=== PATIENT | male | born 1955 | race Caucasian/White ===

== ENCOUNTER 2022-03-23 08:03 | Inpatient (IN) ==
[2022-03-23 09:14] LABS: Albumin Globulin Ratio 1.2 (0.9-2); Albumin Level 4.1 gm/dl (3.4-5.0); BUN Creatinine Ratio 10.4 (10-20); Bilirubin,Total 0.7 mg/dl (0.2-1.0); Calcium 9.1 mg/dl (8.5-10.1); Creatinine Clr Calc Pharmacy 36.1 ml/min; Est GFR (African American) 34.5 ml/min; Est GFR (Non-African American) 29.8 ml/min; Globulin 3.4 gm/dl (2.5-4.0); Magnesium 1.9 mg/dl (1.7-2.4); Potassium 4.5 mmol/L (3.5-5.1); Total Protein 7.5 gm/dl (6.0-8.3)
--- NOTE | 2022-03-23 09:15 | Emergency Department Note ---
History of Present Illness General Chief complaint: Referred by Doctor Stated complaint: LUNG ISSUES Time Seen by Provider: 03/23/22 08:19 Source: patient Mode of arrival: ambulatory Limitations: no limitations History of Present Illness Provider complaint: Shortness of breath, recent pneumonia This is a 66-year-old male presents Emergency Department after being referred by his PCP whom he saw this morning. Patient with recent diagnosis of pneumonia on outpatient chest x-ray after having approximately 10 days of fever, and cough. Patient states they did start him on antibiotics but he does not feel these are helping and he has not improved. He states he had outpatient blood work and saw the PCP this morning and they were concerned by his elevated D-dimer and sent him here for additional evaluation. Patient denies any prior history of DVT/PE. He denies any prior cardiac history. Patient states he has had temperatures as high as 102 with accompanying myalgias and arthralgias. Patient states he has been taking the antibiotics as prescribed. Patient is a prior smoker, no formal diagnosis of COPD, no use of home oxygen or other nebulizer. Home Medications Medication Instructions Recorded Confirmed Type amlodipine 10 mg tablet 10 mg PO DAILY 09/12/20 03/23/22 History aspirin 81 mg tablet,delayed 81 mg PO DAILY 09/12/20 03/23/22 History release atorvastatin 10 mg tablet 10 mg PO DAILY 09/12/20 03/23/22 History cilostazol 100 mg tablet 100 mg PO BID 09/12/20 03/23/22 History lisinopril 40 mg tablet 40 mg PO DAILY 09/12/20 03/23/22 History metoprolol tartrate 50 mg tablet 50 mg PO BID 09/12/20 03/23/22 History Allergies Allergy/AdvReac Type Severity Reaction Status Date / Time Penicillins Allergy Unknown UNKNOWN Verified 09/12/20 01:33 REACTION Past Med/Surg History Medical History Anemia due to chronic kidney disease Chronic kidney disease, stage III (moderate) History of tobacco use HLD (hyperlipidemia) HTN (hypertension) PAF (paroxysmal atrial fibrillation) PVD (peripheral vascular disease) Renal artery stenosis Statin intolerance Surgical History H/O cervical spine surgery H/O endarterectomy S/P insertion of iliac artery stent Family History Mother No problems noted. Father Hypertension Brother Diabetes Sister Cancer Bone cancer Brother Cancer lung cancer Sister Cancer Lung cancer Social History Smoking Status: Former smoker Tobacco Type: Cigarettes packs per day: 0.5; Cigarettes Per Day: half pack per day; Smoking End Date: August 2021; Do You Dip or Chew Tobacco: No; Hx Alcohol Use: Yes Alcohol type: beer Hx Substance Use: No Preferred Language: Turkmen Communication Ability: Effective Vegetable Farmworker Required: No Beliefs That Will Affect Care: None Current Living Situation: Spouse Other Information That Helps Us Care for You: No Feels Safe at Home: Yes Safety Concerns: Feels Safe At This Time Assistive Devices: None Review of Systems A total of 10 systems reviewed and were otherwise negative All systems reviewed & are unremarkable except as noted in HPI & below Physical Exam Vital Signs Vital Signs - 24 hr 03/23/22 08:12 03/23/22 08:04 Temperature 36.9 C Temperature Source Temporal Artery Scan Pulse Rate 100 H Pulse Rate [Apical] 84 Respiratory Rate 20 18 Respiratory Effort / Characteristics Non-Labored Spontaneous Non-Labored Spontaneous Respiratory Depth Normal Normal Respiratory Pattern Regular Blood Pressure 145/80 H Blood Pressure [Right Arm] 144/77 H Blood Pressure Mean 101 Blood Pressure Mean [Right Arm] 99 Blood Pressure Position Sitting Blood Pressure Position [Right Arm] Sitting Pulse Oximetry 94 97 Oxygen Delivery Method Room Air Room Air Sepsis Recent Fever Within 48 Hours Yes Sepsis New/Unexplained Change in Mental Status N/A Sepsis Action Taken by Nursing No Action Required GENERAL: alert, well appearing, well nourished, no distress, non-toxic EYE EXAM: normal conjunctiva, PERRL and EOM's grossly intact OROPHARYNX: no exudate, no erythema, lips, buccal mucosa, and tongue normal and mucous membranes are moist NECK: supple, no nuchal rigidity, no adenopathy, non-tender LUNGS: Decreased left posterior lung. Normal chest wall mechanics, no w/r/r HEART: no murmurs, S1 normal and S2 normal ABDOMEN: abdomen soft, non-tender, normo-active bowel sounds, no masses, no rebound or guarding. BACK: Back is symmetrical on inspection and there is no deformity, no midline tenderness, no CVA tenderness. SKIN: no rashes and no bruising UPPER EXTREMITIES: upper extremities are grossly normal. FROM, nml pulses b/l. LOWER EXTREMITIES: No pitting edema. FROM, nml pulses b/l. NEURO EXAM: Normal sensorium, cranial nerves II-XII grossly intact, normal speech, no gross weakness of arms, no gross weakness of legs. Gross sensation intact. Course Administered Medications Amlodipine Besylate (Amlodipine Besylate 5 Mg Tab) 10 mg PO DAILY [facility] Stop: 04/23/22 13:14 Last Admin: 03/24/22 15:50 Dose: 10 mg Documented By: JAYCE Aspirin (Aspirin 81 Mg Ectab) 81 mg PO DAILY [facility] Stop: 04/22/22 13:59 Last Admin: 03/24/22 08:21 Dose: 81 mg Documented By: Marcos Admin: 03/23/22 15:25 Dose: 81 mg Documented By: ALIVIA Atorvastatin Calcium (Atorvastatin 10 Mg Tab) 10 mg PO DAILY [facility] Stop: 04/22/22 14:14 Last Admin: 03/24/22 10:23 Dose: 10 mg Documented By: Marcos Admin: 03/23/22 16:34 Dose: 10 mg Documented By: ALIVIA Heparin Sodium (Porcine) (Heparin Sod 5,000 Unit/0.5 Ml Vial) 5,000 units SQ Q12 [facility] Stop: 04/22/22 20:59 Last Admin: 03/24/22 08:21 Dose: 5,000 units Documented By: Marcos Admin: 03/23/22 21:00 Dose: 5,000 units Documented By: RAVI Piperacillin Sod/Tazobactam (Sod 3.375 gm/ Dextrose) 115 mls @ 28.75 mls/hr IV Q8H [facility]; Protocol Stop: 03/30/22 16:59 Last Infusion: 03/24/22 14:38 Dose: 0 mls/hr Documented By: Admin: 03/24/22 10:35 Dose: 28.8 mls/hr Documented By: Infusion: 03/24/22 05:56 Dose: 0 mls/hr Documented By: Admin: 03/24/22 00:53 Dose: 28.8 mls/hr Documented By: Infusion: 03/23/22 21:09 Dose: 0 mls/hr Documented By: Admin: 03/23/22 17:00 Dose: 28.8 mls/hr Documented By: ALIVIA Vancomycin HCl 1,250 mg/ (Sodium Chloride) 275 mls @ 200 mls/hr IV Q24H [facility]; Protocol Stop: 03/30/22 07:59 Last Infusion: 03/24/22 10:41 Dose: 0 mls/hr Documented By: Admin: 03/24/22 08:31 Dose: 200 mls/hr Documented By: JAYCE Metoprolol Tartrate (Metoprolol Tartrate 50 Mg Tab) 50 mg PO BID [facility] Stop: 04/22/22 20:59 Last Admin: 03/24/22 08:21 Dose: 50 mg Documented By: Admin: 03/23/22 21:00 Dose: 50 mg Documented By: RAVI Zolpidem Tartrate (Zolpidem Tartrate 5 Mg Tab) 5 mg PO HS PRN PRN Reason: Sleep Stop: 04/23/22 00:53 Last Admin: 03/24/22 01:29 Dose: 5 mg Documented By: RAVI Discontinued Medications Cilostazol (Cilostazol 100 Mg Tab) 100 mg PO NOW STA Stop: 03/23/22 12:38 Last Admin: 03/23/22 12:57 Dose: 100 mg Documented By: FADUMO Sodium Chloride (Nss 1000ml) 1,000 mls @ 100 mls/hr IV .Q10H [facility] Stop: 04/22/22 08:29 Last Infusion: 03/24/22 08:21 Dose: 0 mls/hr Documented By: Admin: 03/24/22 05:15 Dose: 100 mls/hr Documented By: Infusion: 03/23/22 23:37 Dose: 200 mls/hr Documented By: Admin: 03/23/22 18:37 Dose: 200 mls/hr Documented By: Infusion: 03/23/22 18:37 Dose: 200 mls/hr Documented By: Admin: 03/23/22 13:59 Dose: 200 mls/hr Documented By: Infusion: 03/23/22 13:59 Dose: 200 mls/hr Documented By: Admin: 03/23/22 10:27 Dose: 200 mls/hr Documented By: KARAN Vancomycin HCl 2,250 mg/ (Sodium Chloride) 545 mls @ 200 mls/hr IV NOW ONE Stop: 03/23/22 15:28 Last Admin: 03/23/22 13:58 Dose: 200 mls/hr Documented By: ALIVIA Piperacillin Sod/Tazobactam (Sod 4.5 gm/ Dextrose) 120 mls @ 200 mls/hr IV NOW ONE; Protocol Stop: 03/23/22 13:20 Last Infusion: 03/23/22 13:55 Dose: 0 mls/hr Documented By: Admin: 03/23/22 12:57 Dose: 200 mls/hr Documented By: FADUMO Metoprolol Tartrate (Metoprolol Tartrate 50 Mg Tab) 50 mg PO NOW STA Stop: 03/23/22 12:17 Last Admin: 03/23/22 12:47 Dose: 50 mg Documented By: FADUMO Medical Decision Making Differential Diagnosis Differential diagnoses includes but is not limited to pneumonia, bronchitis, COPD/Asthma exacerbation, pneumothorax, pulmonary embolism, congestive heart failure, acute coronary syndrome Medical Records Attestation: I reviewed the patient's medical records. Home Medications Current Medication List: was personally reviewed by me Laboratory Data Attestation: I reviewed the patient's lab results. Result diagrams: 03/24/22 05:35 03/24/22 05:35 Lab Results 03/23/22 03/23/22 03/23/22 Range/Units 08:26 08:26 08:26 WBC 4.52 L (4.8-10.8) K/ul RBC 4.97 (4.63-6.08) M/uL Hgb 14.9 (14.0-18.0) g/dl Hct 44.2 (40.1-51.0) % MCV 88.9 (80.0-100.0) fL MCH 30.0 (25.0-34.0) pg MCHC 33.7 (32.0-36.0) g/dL RDW Std Deviation 43.6 (36.4-46.3) fL RDW Coeff of [place] 13.4 (11.5-14.5) % Plt Count 130 (130-400) K/uL MPV 9.5 (9.4-12.4) fL Immature Gran % (Auto) 0.7 % Neut % (Auto) 67.9 % Lymph % (Auto) 15.7 % [place] % (Auto) 11.5 % Eos % (Auto) 3.8 % Baso % (Auto) 0.4 % Neut # (Auto) 3.07 (1.4-6.5) K/uL Lymph # (Auto) 0.71 L (1.2-3.4) K/uL [place] # (Auto) 0.52 (0.24-0.82) K/uL Eos # (Auto) 0.17 (0-0.50) K/uL Baso # (Auto) 0.02 (0-0.2) K/uL Immature Gran # (Auto) 0.03 H (0.00-0.02) K/uL Sodium 134 L (136-145) mmol/L Potassium 4.5 (3.5-5.1) mmol/L Chloride 103 (98-107) mmol/L Carbon Dioxide 24 (21-32) mmol/L Anion Gap 7 (3-11) BUN 23 (6-23) mg/dl Creatinine 2.22 H (0.6-1.4) mg/dl Est Cr Clr Drug Dosing 36.1 ml/min Est GFR ( Amer) 34.5 ml/min Est GFR (Non-Af Amer) 29.8 ml/min BUN/Creatinine Ratio 10.4 (10-20) Glucose 88 (70-99(Fasting)) mg/dl Calcium 9.1 (8.5-10.1) mg/dl Magnesium 1.9 (1.7-2.4) mg/dl Total Bilirubin 0.7 (0.2-1.0) mg/dl AST 63 H (13-39) U/L ALT 89 H (7-52) U/L Alkaline Phosphatase 125 H (34-104) U/L Troponin I High Sens 56.6 H* (0-20) pg/ml Total Protein 7.5 (6.0-8.3) gm/dl Albumin 4.1 (3.4-5.0) gm/dl Globulin 3.4 (2.5-4.0) gm/dl Albumin/Globulin Ratio 1.2 (0.9-2) Procalcitonin (0-0.5) ng/ml SARS-CoV-2 (PCR) NEGATIVE (Negative) Influenza Type A (PCR) Negative (Neg) Influenza Type B (PCR) Negative (Neg) RSV (RT-PCR) Negative (Neg) 03/23/22 Range/Units 08:26 WBC (4.8-10.8) K/ul RBC (4.63-6.08) M/uL Hgb (14.0-18.0) g/dl Hct (40.1-51.0) % MCV (80.0-100.0) fL MCH (25.0-34.0) pg MCHC (32.0-36.0) g/dL RDW Std Deviation (36.4-46.3) fL RDW Coeff of [place] (11.5-14.5) % Plt Count (130-400) K/uL MPV (9.4-12.4) fL Immature Gran % (Auto) % Neut % (Auto) % Lymph % (Auto) % [place] % (Auto) % Eos % (Auto) % Baso % (Auto) % Neut # (Auto) (1.4-6.5) K/uL Lymph # (Auto) (1.2-3.4) K/uL [place] # (Auto) (0.24-0.82) K/uL Eos # (Auto) (0-0.50) K/uL Baso # (Auto) (0-0.2) K/uL Immature Gran # (Auto) (0.00-0.02) K/uL Sodium (136-145) mmol/L Potassium (3.5-5.1) mmol/L Chloride (98-107) mmol/L Carbon Dioxide (21-32) mmol/L Anion Gap (3-11) BUN (6-23) mg/dl Creatinine (0.6-1.4) mg/dl Est Cr Clr Drug Dosing ml/min Est GFR ( Amer) ml/min Est GFR (Non-Af Amer) ml/min BUN/Creatinine Ratio (10-20) Glucose (70-99(Fasting)) mg/dl Calcium (8.5-10.1) mg/dl Magnesium (1.7-2.4) mg/dl Total Bilirubin (0.2-1.0) mg/dl AST (13-39) U/L ALT (7-52) U/L Alkaline Phosphatase (34-104) U/L Troponin I High Sens (0-20) pg/ml Total Protein (6.0-8.3) gm/dl Albumin (3.4-5.0) gm/dl Globulin (2.5-4.0) gm/dl Albumin/Globulin Ratio (0.9-2) Procalcitonin 0.38 (0-0.5) ng/ml SARS-CoV-2 (PCR) (Negative) Influenza Type A (PCR) (Neg) Influenza Type B (PCR) (Neg) RSV (RT-PCR) (Neg) Imaging Data Radiologist's Impression: CT chest diagnostic wo con CLINICAL HISTORY: PE TECHNIQUE: Multidetector row helical CT of the chest was performed. Coronal and sagittal reformations were obtained. Automated dose lowering techniques and/or adjustment according to patient size were utilized for this exam. CT DOSE: 582.43 mGycm Comparison: Comparison is made to chest radiograph 05/04/2006 FINDINGS: Lungs and pleura: Innumerable pulmonary nodules are seen throughout bilateral lungs. Atelectasis is in the right lower lobe. Prominent nodules include the followin mm nodule in the right upper lobe (series 4 image 73) 9 mm nodule in the right lower lobe (image 134) 11 mm nodule in the right middle lobe (image 158) 5 mm nodule in the lingula (image 168) 10 mm nodule in the left lower lobe (image 131) Heart and pericardium: Physiologic pericardial fluid is noted. Vessels: Severe atherosclerotic changes in the aorta and coronary arteries. Evaluation for pulmonary embolus is limited due to noncontrast technique. Mediastinum and samson: Numerous calcified lymph nodes are seen. Chest wall and lower neck: Unremarkable. Abdomen: Unremarkable. Bones: Degenerative changes in the thoracic spine. IMPRESSION: 1. Innumerable pulmonary nodules concerning for metastatic disease versus less likely septic emboli. Correlation with history is recommended. 2. Evaluation for pulmonary embolus is limited by noncontrast technique. 3. Extensive calcified mediastinal lymph nodes may represent prior granulomatous disease versus posttreatment changes of metastatic lymphadenopathy. ACT 112: Negative or not required by law. Electronically signed by: Cristo Kapoor M.D. 03/23/2022 9:56 AM ECG Data Attestation: I personally reviewed and interpreted this ECG as follows: Indication: + SOB/dyspnea Rate (beats per minute): 91 Rhythm: + normal sinus ECG Intervals/blocks: + Normal QRS and + Normal QT ECG [place]: + Normal ECG ST segments: + Nonspecific ST abnormalities MDM Narrative An order was placed for continuous cardiac monitoring. The monitor shows a rate of _80__ with normal sinus__ rhythm. This is a 66-year-old male presents emergency department after being referred by his PCP due to concern for persistent shortness of breath after recent treatment for pneumonia diagnosed as an outpatient. Patient is a prior smoker. Denies any cardiac history. Labs drawn and sent and patient sent for CT imaging. Unfortunately original CT angiography had to be changed to noncontrast due to new finding of STEFFANIE. Patient denies any recent use of NSAIDs. Given the recent Levaquin he was taking for his pneumonia I felt that was likely the etiology. CT unfortunately with concerning reading and need for additional evaluation. Case discussed with hospitalist. Patient and family bedside were made aware of all results and were in agreement with the plan. Patient remained hemodynamically stable in the emergency room. No hypoxia or increased work of breathing noted. Impression & Plan Dyspnea, STEFFANIE (acute kidney injury), Pneumonia Discharge Plan Visit Data Chief Complaint: Referred by Doctor Stated Complaint: LUNG ISSUES ED Provider: Barbara Cope Discharge Problem: Dyspnea, STEFFANIE (acute kidney injury), Pneumonia Patient Disposition: Admitted As Inpatient Discharge Instructions Interventions: ED Discharge Assessment Last Done: 03/23/22 13:47
[2022-03-23 09:19] LABS: Hematocrit (blood only) 44.2 % (40.1-51.0); Hemoglobin 14.9 g/dl (14.0-18.0); Mean Corpuscular Hgb Conc 33.7 g/dL (32.0-36.0); Mean Corpuscular Volume 88.9 fL (80.0-100.0); Mean Platelet Volume 9.5 fL (9.4-12.4); Platelet Count 130 K/uL (130-400); RDW Coefficient of Variation 13.4 % (11.5-14.5); RDW Standard Deviation 43.6 fL (36.4-46.3); Red Blood Count 4.97 M/uL (4.63-6.08); White Blood Count 4.52 K/ul (4.8-10.8)
[2022-03-23 09:30] LABS: Basophils # (auto) 0.02 K/uL (0-0.2); Basophils % (auto) 0.4 %; Eosinophils # (auto) 0.17 K/uL (0-0.50); Eosinophils % (auto) 3.8 %; Immature Granulocytes # (auto) 0.03 K/uL (0.00-0.02); Immature Granulocytes % (auto) 0.7 %; Lymphocytes # (auto) 0.71 K/uL (1.2-3.4); Lymphocytes % (auto) 15.7 %; Monocytes # (auto) 0.52 K/uL (0.24-0.82); Monocytes % (auto) 11.5 %; Neutrophils # (auto) 3.07 K/uL (1.4-6.5); Neutrophils % (auto) 67.9 %
[2022-03-23 09:33] LABS: Troponin I High Sensitivity 56.6 pg/ml (0-20)
[2022-03-23 09:34] LABS: Influenza A virus by PCR Negative (Neg); Influenza B virus by PCR Negative (Neg); RSV by PCR Negative (Neg); SARS CoV2 RNA(COVID-19) Ceph NEGATIVE (Negative)
--- NOTE | 2022-03-23 09:58 | CT Scan Report ---
CT chest diagnostic wo con CLINICAL HISTORY: PE TECHNIQUE: Multidetector row helical CT of the chest was performed. Coronal and sagittal reformations were obtained. Automated dose lowering techniques and/or adjustment according to patient size were u tilized for this exam. CT DOSE: 582.43 mGycm Comparison: Comparison is made to chest radiograph 05/04/2006 FINDINGS: Lungs and pleura: Innumerable pulmonary nodules are seen throughout bilateral lungs. Atelectasis is i n the right lower lobe. Prominent nodules include the followin mm nodule in the right upper lobe (series 4 image 73) 9 mm nodule in the right lower lobe (image 134) 11 mm nodule in the right middle lobe (image 158) 5 mm nodule in the lingula (image 168) 10 mm nodule in the left lower lobe (image 131) Heart and pericardium: Physiologic pericardial fluid is noted. Vessels: Severe atherosclerotic changes in the aorta and coronary arteries. Evaluation for pulmonary embolus is limited due to noncontrast technique. Mediastinum and samson: Numerous calcified lymph nodes are seen. Chest wall and lower neck: Unremarkable. Abdomen: Unremarkable. Bones: Degenerative changes in the thoracic spine. IMPRESSION: 1. Innumerable pulmonary nodules concerning for metastatic disease versus less likely septic emboli. Correlation with history is recommended. 2. Evaluation for pulmonary embolus is limited by noncontrast technique. 3. Extensive calcified mediastinal lymph nodes may represent prior granulomatous disease versus post treatment changes of metastatic lymphadenopathy. ACT 112: Negative or not required by law. Electronically signed by: Cristo Kapoor M.D. 03/23/2022 9:56 AM
[2022-03-23] MEDS: SODIUM CHLORIDE 0.9% 1000ML 1,000 ML IV SCH ×3 (10:27→18:37)
--- NOTE | 2022-03-23 11:25 | History & Physical Report ---
Date of Service March 23, 2022 Assessment & Plan (1) Pneumonia: Plan: - Admit to tele - Robitussin cough syrup prn, duonebs QID and Q2H prn - No requiring O2 presently - Influenza swab neg, COVID neg, RSV neg, MRSA swab neg - WBC at time of admission = 4.52 - BCx x 2, follow - Procalcitonin 0.38, trop 56.6 - CT of the chest done without contrast due to STEFFANIE - Innumerable pulmonary nodules concerning for metastatic disease versus less likely septic emboli. Correlation with history is recommended. - Continue antibiotic therapy with vanc & zosyn IV, downgrade as possible - CT abd pelvis without acute abnormalities, no weight loss, no night sweats. Pt will need outpatient colonoscopy for routine screening. Can check PSA for screening as well. (2) Stage 3a chronic kidney disease (CKD): (3) STEFFANIE (acute kidney injury): Plan: - Cr. 2.2, baseline of 1.7 - given 1 L in the ER, allow diet - Hold lisinopril and lisinopril for now (4) HTN (hypertension): Plan: - Continue metoprolol, will dose now - Hold amlodipine and lisinopril (5) HLD (hyperlipidemia): Plan: - Cont atorvastain (6) PVD (peripheral vascular disease): Plan: - Hx of iliac artery stent placement in August 2021, cont pletal, statin. No longer on DAPT since 2 months post surgery (7) Anemia due to chronic kidney disease: Plan: - Follow cbc, wbc on the low end of normal DVT ppx: teds, scds, heparin subq CODE: Full code Dispo: from home, likely to remain in the hospital x 1-2 History of Present Illness Chief Complaint: Shortness of breath Primary Care Provider: Edward Self MD This is a 66-year-old male with PMHx of HTN, HLD, statin intolerance, paroxysmal A. fib, CKD stage III, anemia secondary to CKD who has been being treated with Levaquin for an outpatient pneumonia for the past week. Initially 2 weeks ago he had cough, respiratory symptoms and shortness of breath intermittently. He was initially bringing up sputum but isn't anymore. He has had a very poor appetite since being sick but denies any weight loss. Admits to having some night sweats acutely with all of these symptoms but has never noticed this before. He feels current heaviness in the center of his chest, no pain, no palpitations or tightness. He represented to his PCP office this morning due to persistent fevers over the past 8 days reaching upwards of 102 every day. He had CXR and d dimer done last Tuesday and PCP noticed a spot that did not look improved upon review today. Due to an elevated D-dimer he was sent to the ER for possible CTA to rule out pulmonary embolism. After obtaining lab work it was found that he is in STEFFANIE with an elevated creatinine of 2.[address] was not able to be done,. Noncontrast CT was showing possible metastatic nodules versus septic em boli. He also notes that he quit smoking approximately 6 months ago, smoked 1/2 pack/day for 20 years. He has been taking Tylenol which is breaking his fevers, last taken at 5 am today. He did not take any of his other routinely scheduled medications Today's creatinine is found to be 2.22, baseline of 1.7. His white count is 4.5 with lymphopenia of 0.71. Troponin is found to be 56.6. Previously was on blood thinner 2 months after having iliac artery stent in August 2021. Allergies Allergy/AdvReac Type Severity Reaction Status Date / Time Penicillins Allergy Unknown UNKNOWN Verified 09/12/20 01:33 REACTION Home Medications Medication Instructions Recorded Confirmed Type amlodipine 10 mg tablet 10 mg PO DAILY 09/12/20 03/23/22 History aspirin 81 mg tablet,delayed 81 mg PO DAILY 09/12/20 03/23/22 History release atorvastatin 10 mg tablet 10 mg PO DAILY 09/12/20 03/23/22 History cilostazol 100 mg tablet 100 mg PO BID 09/12/20 03/23/22 History lisinopril 40 mg tablet 40 mg PO DAILY 09/12/20 03/23/22 History metoprolol tartrate 50 mg tablet 50 mg PO BID 09/12/20 03/23/22 History Past Med/Surg History Medical History (Updated 03/23/22 @ 11:51 by Elva Hughes PA-C) Anemia due to chronic kidney disease History of tobacco use HLD (hyperlipidemia) HTN (hypertension) PAF (paroxysmal atrial fibrillation) PVD (peripheral vascular disease) Stage 3a chronic kidney disease (CKD) Statin intolerance Surgical History (Updated 03/23/22 @ 11:22 by Elva Hughes PA-C) H/O cervical spine surgery H/O endarterectomy S/P insertion of iliac artery stent Family History (Updated 03/23/22 @ 11:49 by Elva Hughes PA-C) Mother No problems noted. Father Hypertension Brother Diabetes Sister Cancer Bone cancer Brother Cancer lung cancer Sister Cancer Lung cancer Social History (Updated 03/23/22 @ 11:23 by Elva Hughes PA-C) Smoking Status: Former smoker Tobacco Type: Cigarettes packs per day: 0.5; Smoking End Date: August 2021; Feels Safe at Home: Yes Review of Systems Review of Systems: Constitutional: No fever, sweats or chills Eyes: No diplopia, no worsening or blurred vision ENT: normal hearing, no trouble swallowing Respiratory: As per HPI, occasional cough, +sputum, no dyspnea at rest , + shortness of breath on exertion Cardiovascular: + heaviness, No chest pain, tightness or palpitations Abdomen: + poor appetite, No pain, nausea, vomiting, diarrhea or constipation Musculoskeletal: No joint pain, calf pain, swelling Neurologic: No weakness, numbness/tingling, or balance problems Psychiatric: No anxiety or depression Skin: No rash or itch Physical Exam Physical Exam: General: awake, alert, no apparent distress Head: Normocephalic, atraumatic ENT: PERRL, EOMI, no pharyngeal exudate, mucous membranes moist Chest: Rales at bases bilaterally, diminished at the right base slightly, o2 sats are stable at 96% on RA Cardiac: Regular rate and rhythm, no murmur, no JVD, normal peripheral pulses, good capillary refill Abdominal: NABS x 4 quadrants, soft, nondistended, nontender to palpation, no rebound, + guarding with palpation of the RLQ and mid right lower quadrant Extremities: Normal inspection, no peripheral edema or erythema, calfs nontender to palpation Psych: Normal mood and affect Neuro: AAO x 3, strength intact bilaterally and rated 5/5, no motor deficits, speech is clear, no peripheral sensory deficits Results & Data Results & [facility] ([facility]) Vital Signs (Past 12 Hours) Vital Signs Temp Pulse Pulse Resp BP BP Pulse Ox 03/23/22 10:04 87 18 148/75 H 96 03/23/22 08:04 84 18 144/77 H 97 03/23/22 08:12 36.9 C 100 H 20 145/80 H 94 O2 Del Method 03/23/22 10:04 Room Air 03/23/22 08:04 Room Air 03/23/22 08:12 Room Air Laboratory Results 03/23/22 03/23/22 03/23/22 08:26 08:26 08:26 WBC 4.52 L RBC 4.97 Hgb 14.9 Hct 44.2 MCV 88.9 MCH 30.0 MCHC 33.7 RDW Std Deviation 43.6 RDW Coeff of Papito 13.4 Plt Count 130 MPV 9.5 Immature Gran % (Auto) 0.7 Neut % (Auto) 67.9 Lymph % (Auto) 15.7 [place] % (Auto) 11.5 Eos % (Auto) 3.8 Baso % (Auto) 0.4 Neut # (Auto) 3.07 Lymph # (Auto) 0.71 L [place] # (Auto) 0.52 Eos # (Auto) 0.17 Baso # (Auto) 0.02 Immature Gran # (Auto) 0.03 H Sodium 134 L Potassium 4.5 Chloride 103 Carbon Dioxide 24 Anion Gap 7 BUN 23 Creatinine 2.22 H Est Cr Clr Drug Dosing 36.1 Est GFR ( Amer) 34.5 Est GFR (Non-Af Amer) 29.8 BUN/Creatinine Ratio 10.4 Glucose 88 Calcium 9.1 Magnesium 1.9 Total Bilirubin 0.7 AST 63 H ALT 89 H Alkaline Phosphatase 125 H Troponin I High Sens 56.6 H* Total Protein 7.5 Albumin 4.1 Globulin 3.4 Albumin/Globulin Ratio 1.2 SARS-CoV-2 (PCR) NEGATIVE Influenza Type A (PCR) Negative Influenza Type B (PCR) Negative RSV (RT-PCR) Negative Diagnostic Findings Chest CT 03/23/22 08:30 CT chest diagnostic wo con CLINICAL HISTORY: PE TECHNIQUE: Multidetector row helical CT of the chest was performed. Coronal and sagittal reformations were obtained. Automated dose lowering techniques and/or adjustment according to patient size were utilized for this exam. CT DOSE: 582.43 mGycm Comparison: Comparison is made to chest radiograph 05/04/2006 FINDINGS: Lungs and pleura: Innumerable pulmonary nodules are seen throughout bilateral lungs. Atelectasis is in the right lower lobe. Prominent nodules include the followin mm nodule in the right upper lobe (series 4 image 73) 9 mm nodule in the right lower lobe (image 134) 11 mm nodule in the right middle lobe (image 158) 5 mm nodule in the lingula (image 168) 10 mm nodule in the left lower lobe (image 131) Heart and pericardium: Physiologic pericardial fluid is noted. Vessels: Severe atherosclerotic changes in the aorta and coronary arteries. Evaluation for pulmonary embolus is limited due to noncontrast technique. Mediastinum and samson: Numerous calcified lymph nodes are seen. Chest wall and lower neck: Unremarkable. Abdomen: Unremarkable. Bones: Degenerative changes in the thoracic spine. IMPRESSION: 1. Innumerable pulmonary nodules concerning for metastatic disease versus less likely septic emboli. Correlation with history is recommended. 2. Evaluation for pulmonary embolus is limited by noncontrast technique. 3. Extensive calcified mediastinal lymph nodes may represent prior granulomatous disease versus posttreatment changes of metastatic lymphadenopathy. ACT 112: Negative or not required by law. Electronically signed by: Cristo Kapoor M.D. 03/23/2022 9:56 AM ECG Additional Comments: 23-MAR-2022 08:20:15 [facility]-EDSTAT ROUTINE RETRIEVAL Normal sinus rhythm Septal infarct , age undetermined Abnormal ECG When compared with ECG of 04-MAY-2006 14:43, Vent. rate has increased BY 30 BPM Septal infarct is now Present 25mm/s10mm/[id number] 241CID: 15Unconfirmed Vent. rate 91 BPM OH interval 160 ms QRS duration 108 ms QT/QTc 352/432 ms Code Status & VTE Plan Code Status Full code - discussed with pt and at bedside Supervising Physician Co-Signing Physician Notes Pt is a 66 y/o M with hx of CKD III with anemia (bl cr 1.7 and hgb 12-14), Prediabetes, HTN, postop Afib, HLD, PAD S/Prightfemoral endarterectomy with pericardial patch angioplasty andrightiliac stent placementadmitted for worsening SOB. CT chest showed finding consistent with septic emboli vs metastatic disease. Pt was recently seen in the outpt setting for cough and chest congestion. Treated for possible pneumonia. Pts d-dimer came back positive therefore sent to the ER PE: NAD, well developed HEENT: EOMI, normal conjunctiva Lungs: Good air entry b/l but L lower rales, no wheezing Abd: ND, soft, pt initially had TTP of the R mid abd but not with subsequent palpation, very mild guarding on the R mid abd area, normal BS MSK: no LE edema or erythema Psych: AAOx3, normal affect A/P: Chest congestion with Dyspnea: -normal SpO2 in the ER -Due to STEFFANIE CT chest w/o contrast was obtained: ---pulm nodules concerning for metastatic disease vs septic emboli. Presence of mediastinal lymph nodes -discussed the case with nephrology: recommended to avoid contrast due to acute STEFFANIE -Pt denied any night sweats, weight loss, prior hx of Cancer --- former smoker: quit 6 months ago -for septic emboli will start the pt on heparin drip with vancomycin and zosyn --- BCx sent --- ID consult --- echo -will obtain CT abd and PSA --- CT abd: No evidence of infectious process, intraabdominal metastatic disease - if the echo showed any sign of any vegetation then consult cardiology - trend trop - due to the hx of Stent will continue aspirin -will get LE Doppler with echo to evaluate for/confirm dx of PE/DVT STEFFANIE on CKD III -baseline Cr is 1.7 -currently receiving IVF --- trend BMP -if the Cr improves then might consider Contrast studies in the future - will hold his Lisinopril at this time Agree with A/P by Elva Hughes PA-C
[2022-03-23] MEDS ORDERED: METOPROLOL TARTRATE 50 MG TAB PO STA (12:16)
[2022-03-23] MEDS ORDERED: VANCOMYCIN CONSULT ACTIVE PRN (12:20)
[2022-03-23] MEDS ORDERED: cilostazoL 100 MG TAB PO STA (12:37)
[2022-03-23] MEDS ORDERED: VANCOMYCIN HCL 2,250 MG in SODIUM CHLORIDE 0.9% 500 ML IV ONE (12:45)
[2022-03-23] MEDS ORDERED: PIPERACILLIN/TAZOBACTAM 4.5 GM in DEXTROSE 5% 100 ML IV ONE ×2 (12:45→13:53)
--- NOTE | 2022-03-23 12:54 | CT Scan Report ---
CT SCAN OF THE ABDOMEN AND PELVIS WITHOUT IV CONTRAST CLINICAL HISTORY: Right-sided abdominal pain. Abnormal chest CT with possible pulmonary metastatic disease. COMPARISON STUDY: Lumbar spine radiographs dated 09/12/2013. Chest CT dated 03/23/2022. TECHNIQUE: CT scan of the abdomen and pelvis is performed from the lung bases to the proximal femora. Images are reviewed in the axial, sagittal, and coronal planes. IV contrast was not administered for this examination as per the referring clinician. Note that the examination was performed and signifi cantly suboptimal fashion without oral and IV contrast. A dose lowering technique was utilized adheri ng to the principles of ALARA. CT DOSE: 810.52 mGy.cm FINDINGS: Lung bases: The heart is enlarged noting a small to moderate pericardial effusion. The coronary arter ies are densely calcified. Airspace consolidation is seen at the left lung base. There are numerous ( greater than 10) irregular lower lobe pulmonary nodules which are highly suspicious for metastatic di sease. A [employer] nodule in the left lower lobe on image #6 measures 1.3 cm and a representativ e nodule in the right middle lobe on image #1 measures 1.2 cm. There is a small hiatal hernia. There are calcified mediastinal lymph nodes. Liver: The unenhanced liver is normal in size, contour, and attenuation. There is no intrahepatic alma iary ductal dilatation. Gallbladder: Unremarkable. Spleen: Normal in size and attenuation. Pancreas: Unremarkable. Adrenal glands: Unremarkable. Kidneys: The unenhanced kidneys demonstrate cortical atrophy and are without hydronephrosis. There ar e no renal calculi identified. There is no evidence of contour deforming renal mass lesion. Abdominal vasculature: There is advanced atherosclerotic calcification and ectasia of the abdominal a diamond. A stent is noted in the right common iliac artery. There is likely a high-grade stenosis versus occlusion of the left superficial femoral artery seen on image #434. This is not well assessed witho ut IV contrast. Bowel: There is no bowel obstruction. The appendix is well-visualized and normal. Peritoneum: There is no intraperitoneal free air or abdominal ascites. Lymphadenopathy: No pathologically enlarged lymph nodes are identified in the abdomen or pelvis. Calc ified nodes are seen in the upper abdomen. Pelvic viscera: The prostate gland is enlarged and heterogeneous. The bladder is distended, the wall appears thickened/trabeculated indicating chronic outlet obstruction. Postsurgical changes noted in t he right groin. Skeletal structures: The skeletal structures are osteopenic. There is mild to moderate lumbosacral sp ondylosis. No lytic or blastic lesions are seen. IMPRESSION: 1. No acute infectious or inflammatory findings are identified in the abdomen or pelvis. 2. There is no evidence of intra-abdominal metastatic disease on this unenhanced examination. 3. Numerous pathologically indeterminate lower lobe pulmonary nodules are similar to today's chest CT . Also these could potentially be infectious/inflammatory, the appearance is more suspicious for mult ifocal pulmonary metastatic disease. At a minimum, short-term CT follow-up is recommend. 4. There is left basilar consolidation. Correlate clinically for evidence of pneumonia/aspiration pne umonitis. 5. Additional findings as above. ACT 112: Negative or not required by law. Electronically signed by: Aroldo Carrasco M.D. 03/23/2022 12:53 PM
--- NOTE | 2022-03-23 13:26 | Electrocardiogram Report ---
Test Reason : Blood Pressure : / mmHG Vent. Rate : 091 BPM Atrial Rate : 091 BPM P-R Int : 160 ms QRS Dur : 108 ms QT Int : 352 ms P-R-T Axes : 047 -27 049 degrees QTc Int : 432 ms Normal sinus rhythm Possible Old Septal infarct Abnormal ECG When compared with ECG of 04-MAY-2006 14:43, Vent. rate has increased BY 30 BPM Borderline Criteria for Septal infarct is now Present Voltage criteria for left ventricular hypertrophy no longer present Confirmed by Leandro Freed ([id number]) on 03/23/2022 1:25:51 PM Referred By: Confirmed By:Leandro Freed
[2022-03-23] MEDS ORDERED: ONDANSETRON INJ 2 MG/ML 2 ML VIAL IV PRN (13:53)
[2022-03-23] MEDS ORDERED: guaiFENesin/DEXTROM SYRUP 100MG/10MG 5ML UDC PO PRN (13:53)
--- NOTE | 2022-03-23 14:54 | Pharmacy Report ---
Pharmacy Vanc AUC Short Note - Date of Service March 23, 2022 - Assessment & Plan Assessment 66 year old M started on vancomycin and zosyn for possible pneumonia/empiric therapy. Per notes, MRSA nasal swab neg and had been started on levaquin outpatient. Plan Vancomycin * AUC/MISSY is the preferred PK/PD target for vancomycin * AUC guided dosing is effective and associated with decreased risk of nephrotoxicity compared to traditional trough targets * Patient received loading dose of vancomycin 2250 mg x 1 (~25 mg/kg/dose) * Will start vancomycin 1000 mg iv q 24 hrs - this dosing is estimated to achieve a trough level of ~16 mcg/ml and target AUC/MISSY of 400-600 mg/L.hr and may be associated with a 12 % risk of nephrotoxicity * Will monitor Scr closely as elevated from baseline, may consider checking random level tomorrow to assist with further dosing if renal function changes Pharmacy will continue to follow and will adjust dose/frequency as necessary. Thank you.
--- NOTE | 2022-03-23 15:17 | Ultrasound Report ---
BILATERAL LOWER EXTREMITY VENOUS DOPPLER HISTORY: Elevated d-dimer. elevated dimer COMPARISON STUDY: None. FINDINGS: There is normal compressibility, flow, and augmentation within the bilateral lower extremit y deep venous systems. IMPRESSION: No DVT within the right or left lower extremity. ACT 112: Negative or not required by law. Electronically signed by: Jaspreet Isaacs M.D. 03/23/2022 3:16 PM
[2022-03-23] MEDS: ASPIRIN 81 MG ECTAB PO SCH (15:25)
[2022-03-23] MEDS: ATORVASTATIN 10 MG TAB PO SCH (16:34)
[2022-03-23] MEDS: PIPERACILLIN/TAZOBACTAM 3.375 GM in DEXTROSE 5% 100 ML IV SCH (17:00)
--- NOTE | 2022-03-23 17:57 | Nephrology Consultation ---
Date of Consultation March 23, 2022 Assessment & Plan (1) Acute on chronic renal failure: STEFFANIE on CKD w/ baseline creatinine 2.7. likely prerenal given hx, though ischemic ATN w/ sepsis / fevers also possible. chemistries, volume status ok will lower NS rate to 100 ml/hr daily bmp cont to avoid IV contrast for CT -cont to hold lisinopril History of Present Illness Reason for Consultation: STEFFANIE Requesting Physician: Dr Mckee Attending Physician: Ralf Mckee MD History of Present Illness 66 y/o M whom I'm asked to see for STEFFANIE was admitted today for pneumonia after failing one week of OP levaquin. PMH includes CKD 3 w/ baseline creatinine 1.7-1.8, HTN, A fib, peripheral arterial disease s/p iliac artery stent August 2021, hx of R renal artery stenosis medically managed, reformed cigarette smoker. He was diagnosed w/ PNA in early February; he noted for the past week that sx seemed to be recurring with F as high as 102.8, worsening dyspnea, dry cough, C XR as OP showing worsening multifocal PNA. Started on levaquin 03/19 w/o improvement so far. Sent to ER by PCP after recheck today for worsening sx and concern to r/o PE. Noted on arrival to have STEFFANIE w/ presenting creatinine 2.7. He has continued to take his medications, including lisinopril. Could not have IV contrast d/t STEFFANIE >> at my suggestion pt had instead dopplers, TTE, VQ scan. Presenting labs also notable for lymphopenia and troponin 57. CT chest w/ multiple nodules concerning for metastatic disease. He's on NS at 200 mL/hourly and vanco/zosyn. pt has had minimal po intake for past 3-4 days - no appetite w/ F. has had intermittent night sweats as well. some wt gain past several mos (per clinic notes about 15 lb August through December, up about 20 lb August through March; he did stop tobacco August 2021). denies new/worrisome voiding sx or change in UOP. some chest heaviness today but no chest pain or palpitations. no N/v/D. no rash. Allergies Allergy/AdvReac Type Severity Reaction Status Date / Time Penicillins Allergy Unknown UNKNOWN Verified 09/12/20 01:33 REACTION Home Medications Medication Instructions Recorded Confirmed Type amlodipine 10 mg tablet 10 mg PO DAILY 09/12/20 03/23/22 History aspirin 81 mg tablet,delayed 81 mg PO DAILY 09/12/20 03/23/22 History release atorvastatin 10 mg tablet 10 mg PO DAILY 09/12/20 03/23/22 History cilostazol 100 mg tablet 100 mg PO BID 09/12/20 03/23/22 History lisinopril 40 mg tablet 40 mg PO DAILY 09/12/20 03/23/22 History metoprolol tartrate 50 mg tablet 50 mg PO BID 09/12/20 03/23/22 History Patient History Medical History Anemia due to chronic kidney disease Chronic kidney disease, stage III (moderate) History of tobacco use HLD (hyperlipidemia) HTN (hypertension) PAF (paroxysmal atrial fibrillation) PVD (peripheral vascular disease) Renal artery stenosis Statin intolerance Surgical History H/O cervical spine surgery H/O endarterectomy S/P insertion of iliac artery stent Family History Mother No problems noted. Father Hypertension Brother Diabetes Sister Cancer Bone cancer Brother Cancer lung cancer Sister Cancer Lung cancer Social History Smoking Status: Former smoker Tobacco Type: Cigarettes packs per day: 0.5; Cigarettes Per Day: half pack per day; Smoking End Date: August 2021; Do You Dip or Chew Tobacco: No; Hx Alcohol Use: Yes Alcohol type: beer Hx Substance Use: No Preferred Language: [place] Islander Communication Ability: Effective Public Speaking Professor Required: No Beliefs That Will Affect Care: None Current Living Situation: Spouse Other Information That Helps Us Care for You: No Feels Safe at Home: Yes Safety Concerns: Feels Safe At This Time Assistive Devices: Glasses Review of Systems Review of Systems: All systems reviewed & are unremarkable except as noted in HPI & below Physical Exam Constitutional: well developed, well nourished and cooperative; no acute distress Eyes: EOM intact bilaterally ENMT: Ears: no external ear abnormality Nose: no external nose abnormality Mouth: + dry oral mucous membranes Neck: no nuchal rigidity Respiratory: normal respiratory effort Auscultation: + diminished lung sounds and + crackles (fine bibasilar BL) Cardiovascular: Rate/Rhythm: regular rate and regular rhythm Extremities: no edema Gastrointestinal (Abdomen): Inspection/Auscultation: normal bowel sounds Percussion/Palpation: abdomen soft; abdomen nontender Musculoskeletal: Extremities: strength 5/5 throughout Skin: no rashes, warm and dry Neurologic: major, fluent speech, no tremor Psychiatric: Orientation: oriented x 3 Speech: normal rate/rhythm/volume of speech Results & Data ([facility]) Vital Signs (Past 12 Hours) Vital Signs Temp Pulse Pulse Resp BP BP Pulse Ox 03/23/22 14:03 37.2 C 86 18 146/77 H 94 03/23/22 15:30 37.2 C 86 18 146/77 H 94 03/23/22 12:30 93 H 19 93 03/23/22 12:30 146/70 H 03/23/22 12:00 88 24 95 03/23/22 12:00 151/74 H 03/23/22 11:30 87 20 95 03/23/22 11:30 143/69 H 03/23/22 11:00 86 27 H 96 03/23/22 11:00 137/71 03/23/22 10:30 87 26 H 95 03/23/22 10:30 148/75 H 03/23/22 10:23 90 30 H 03/23/22 09:30 89 29 H 94 03/23/22 09:30 141/75 H 03/23/22 09:00 82 29 H 91 03/23/22 09:00 142/68 H 03/23/22 08:30 88 26 H 95 03/23/22 08:30 144/77 H 03/23/22 08:27 88 34 H 96 03/23/22 08:27 149/81 H 03/23/22 08:22 90 23 96 03/23/22 10:04 87 18 148/75 H 96 03/23/22 08:04 84 18 144/77 H 97 03/23/22 08:12 36.9 C 100 H 20 145/80 H 94 O2 Del Method 03/23/22 14:03 Room Air 03/23/22 15:30 Room Air 03/23/22 12:30 03/23/22 12:30 03/23/22 12:00 03/23/22 12:00 03/23/22 11:30 03/23/22 11:30 03/23/22 11:00 03/23/22 11:00 03/23/22 10:30 03/23/22 10:30 03/23/22 10:23 03/23/22 09:30 03/23/22 09:30 03/23/22 09:00 03/23/22 09:00 03/23/22 08:30 03/23/22 08:30 03/23/22 08:27 03/23/22 08:27 03/23/22 08:22 03/23/22 10:04 Room Air 03/23/22 08:04 Room Air 03/23/22 08:12 Room Air Laboratory Results 03/23/22 08:26 03/23/22 08:[address] chest non con Lungs and pleura: Innumerable pulmonary nodules are seen throughout bilateral lungs. Atelectasis is in the right lower lobe. Prominent nodules include the followin mm nodule in the right upper lobe (series 4 image 73) 9 mm nodule in the right lower lobe (image 134) 11 mm nodule in the right middle lobe (image 158) 5 mm nodule in the lingula (image 168) 10 mm nodule in the left lower lobe (image 131) Heart and pericardium: Physiologic pericardial fluid is noted. Vessels: Severe atherosclerotic changes in the aorta and coronary arteries. Evaluation for pulmonary embolus is limited due to noncontrast technique. Mediastinum and samson: Numerous calcified lymph nodes are seen. Chest wall and lower neck: Unremarkable. Abdomen: Unremarkable. Bones: Degenerative changes in the thoracic spine. IMPRESSION: 1. Innumerable pulmonary nodules concerning for metastatic disease versus less likely septic emboli. Correlation with history is recommended. 2. Evaluation for pulmonary embolus is limited by noncontrast technique. 3. Extensive calcified mediastinal lymph nodes may represent prior granulomatous disease versus posttreatment changes of metastatic lymphadenopathy. CT a/p non con Lung bases: The heart is enlarged noting a small to moderate pericardial effusion. The coronary arteries are densely calcified. Airspace consolidation is seen at the left lung base. There are numerous (greater than 10) irregular lower lobe pulmonary nodules which are highly suspicious for metastatic disease. A goodwill representative nodule in the left lower lobe on image #6 measures 1.3 cm and a goodwill representative nodule in the right middle lobe on image #1 measures 1.2 cm. There is a small hiatal hernia. There are calcified mediastinal lymph nodes. Liver: The unenhanced liver is normal in size, contour, and attenuation. There is no intrahepatic biliary ductal dilatation. Gallbladder: Unremarkable. Spleen: Normal in size and attenuation. Pancreas: Unremarkable. Adrenal glands: Unremarkable. Kidneys: The unenhanced kidneys demonstrate cortical atrophy and are without hydronephrosis. There are no renal calculi identified. There is no evidence of contour deforming renal mass lesion. Abdominal vasculature: There is advanced atherosclerotic calcification and ectasia of the abdominal aorta. A stent is noted in the right common iliac artery. There is likely a high-grade stenosis versus occlusion of the left superficial femoral artery seen on image #434. This is not well assessed without IV contrast. Bowel: There is no bowel obstruction. The appendix is well-visualized and normal. Peritoneum: There is no intraperitoneal free air or abdominal ascites. Lymphadenopathy: No pathologically enlarged lymph nodes are identified in the abdomen or pelvis. Calcified nodes are seen in the upper abdomen. Pelvic viscera: The prostate gland is enlarged and heterogeneous. The bladder is distended, the wall appears thickened/trabeculated indicating chronic outlet obstruction. Postsurgical changes noted in the right groin. Skeletal structures: The skeletal structures are osteopenic. There is mild to moderate lumbosacral spondylosis. No lytic or blastic lesions are seen. IMPRESSION: 1. No acute infectious or inflammatory findings are identified in the abdomen or pelvis. 2. There is no evidence of intra-abdominal metastatic disease on this unenhanced examination. 3. Numerous pathologically indeterminate lower lobe pulmonary nodules are similar to today's chest CT. Also these could potentially be infectio us/inflammatory, the appearance is more suspicious for multifocal pulmonary metastatic disease. At a minimum, short-term CT follow-up is recommend. 4. There is left basilar consolidation. Correlate clinically for evidence of pneumonia/aspiration pneumonitis. 5. Additional findings as above. BLE Venous Dopplers > no DVT TTE mild CLVH, EF 60-65%, no WMA; grade 1 D dysfunction; AV sclerosis
[2022-03-23] MEDS: HEPARIN SOD 5,000 UNIT/0.5 ML VIAL SQ SCH (21:00)
[2022-03-23] MEDS: METOPROLOL TARTRATE 50 MG TAB PO SCH (21:00)
[2022-03-23 21:15] LABS: Appearance Urine Clear (Clear); Bacteria Urine Automated Negative (Negative); Bilirubin Urine Negative (Negative); Blood Urine Trace (Negative); Cast Urine Automated 0 /lpf (0-5); Color Urine Yellow; Epithelial Cell Urine Auto 0-5 /lpf (0-5); Glucose Urine UA Negative (Negative); Ketones Urine Negative (Negative); Leukocyte Esterase Urine Negative (Negative); Nitrite Urine Negative (Negative); Protein Urine Trace (Negative); RBC Urine Automated 0-4 /hpf (0-4); Specific Gravity Urine 1.017 (1.000-1.030); Urobilinogen Urine Negative (Negative); WBC Urine Automated 0 /hpf (0-5); pH Urine 5.5 (4.5-7.5)
[2022-03-24] MEDS: PIPERACILLIN/TAZOBACTAM 3.375 GM in DEXTROSE 5% 100 ML IV SCH ×3 (00:53→17:47)
[2022-03-24] MEDS: ZOLPIDEM TARTRATE 5 MG TAB PO PRN ×2 (01:29→22:58)
[2022-03-24] MEDS: SODIUM CHLORIDE 0.9% 1000ML 1,000 ML IV SCH (05:15)
[2022-03-24 06:53] LABS: Albumin Level 3.4 gm/dl (3.4-5.0); Bilirubin Direct 0.1 mg/dl (0-0.2); Bilirubin,Total 0.7 mg/dl (0.2-1.0); Creatinine Clr Calc Pharmacy 42.8 ml/min; Est GFR (African American) 41.4 ml/min; Est GFR (Non-African American) 35.7 ml/min; Potassium 4.3 mmol/L (3.5-5.1); Total Protein 6.1 gm/dl (6.0-8.3)
[2022-03-24 06:56] LABS: Hemoglobin 12.4 g/dl (14.0-18.0); Mean Corpuscular Hemoglobin 29.5 pg (25.0-34.0); Mean Corpuscular Hgb Conc 33.5 g/dL (32.0-36.0); Mean Corpuscular Volume 88.1 fL (80.0-100.0); Mean Platelet Volume 9.6 fL (9.4-12.4); Platelet Count 120 K/uL (130-400); Platelet Estimate Decreased (Normal); RDW Coefficient of Variation 13.2 % (11.5-14.5); RDW Standard Deviation 42.8 fL (36.4-46.3); White Blood Count 4.51 K/ul (4.8-10.8)
--- NOTE | 2022-03-24 07:39 | Pharmacy Report ---
Pharmacy Vanc AUC Short Note - Date of Service March 24, 2022 - Assessment & Plan Assessment 66 year old M started on vancomycin and zosyn for possible pneumonia/empiric therapy. Per notes, MRSA nasal swab neg and had been started on levaquin outpatient. Day # 2 of antimicrobial therapy. Plan Vancomycin * AUC/MISSY is the preferred PK/PD target for vancomycin * AUC guided dosing is effective and associated with decreased risk of nephrotoxicity compared to traditional trough targets * Random vancomycin level this morning was ~10 mcg/ml - Scr rapidly changing, improving more towards baseline * Will start maintenance dose of vancomycin 1250 mg iv q 24 hours - this dosing is estimated to achieve a trough level of ~18 mcg/mL is predicted to achieve target AUC/MISSY of 400-600 mg/L.hr and may be associated with a 14 % risk of nephrotoxicity * Antibiotics ordered only as empiric x 48 hrs - will followup with provider if duration should be extended as approaching stop date soon Pharmacy will continue to follow and will adjust dose/frequency as necessary. Thank you.
[2022-03-24] MEDS: METOPROLOL TARTRATE 50 MG TAB PO SCH ×2 (08:21→19:57)
[2022-03-24] MEDS: ASPIRIN 81 MG ECTAB PO SCH (08:21)
[2022-03-24] MEDS: HEPARIN SOD 5,000 UNIT/0.5 ML VIAL SQ SCH ×2 (08:21→19:57)
[2022-03-24] MEDS: VANCOMYCIN HCL 1,250 MG in SODIUM CHLORIDE 0.9% 250 ML IV SCH (08:31)
--- NOTE | 2022-03-24 08:46 | Electrocardiogram Report ---
Test Reason : Blood Pressure : / mmHG Vent. Rate : 084 BPM Atrial Rate : 084 BPM P-R Int : 168 ms QRS Dur : 100 ms QT Int : 364 ms P-R-T Axes : 061 -23 052 degrees QTc Int : 430 ms Normal sinus rhythm Normal ECG When compared with ECG of 23-MAR-2022 08:20, Criteria for Septal infarct no longer present Confirmed by Leandro Freed ([id number]) on 03/24/2022 8:46:23 AM Referred By: Sera Collazo Confirmed By:Leandro Freed
[2022-03-24] MEDS: ATORVASTATIN 10 MG TAB PO SCH (10:23)
--- NOTE | 2022-03-24 10:53 | Pulmonary Consultation ---
Date of Consultation March 24, 2022 Assessment & Plan (1) Multiple lung nodules: 66-year-old male presenting with ongoing fevers and likely initially felt to be related to pulmonary infection, now found to have "innumerable" pulmonary nodules and pancytopenia. * Pulmonary nodules of questionable significance currently. They are nearly all subcentimeter in size and not amendable to bronchoscopic evaluation currently. The mediastinal lymph nodes are calcified and suggestive of prior granulomatous disease process. Again, no biopsy at this time. Would recommend short-term (3 month follow-up) CT. In the meanwhile would recommend evaluating for possible sources of septic emboli process. Added arterial duplex to assess patient's new stent to the RIGHT common iliac. TTE w/o vegetative findings. Consider DAREN. Continue w/ broad spectrum antibiotic with blood cultures pending. Patient would benefit from ID consult as well. Otherwise, the patient is without need for urgent pulmonary/bronchoscopy evaluation and is welcome to follow up in the outpatient setting for continued monitoring of lung nodules. * Pancytopenia. Patient could certainly benefit from further evaluation regarding worsening pancytopenia with other subsequent findings (i.e. malignancy, viral, rheumatologic). Thank you for allowing us to participate in the care of this patient. (2) Pneumonia: (3) Acute on chronic renal failure: Supervising Physician Co-Signing Physician Notes Patient seen and examined. EMR reviewed. Images independently reviewed. Agree with assessment plan as noted by ALBA. The patient has multiple pulmonary nodules. These have a more classic appearance for septic emboli rather than true pneumonia. Agree with work-up for potential endovascular source of infection. ID consultation may be beneficial. Blood cultures are pending but may be negative due to the patient being on prior antibiotics. Cannot exclude other potential etiologies for the pulmonary nodules and follow-up imaging is recommended. Would recommend a follow-up noncontrast CT of the chest in 8 to 10 weeks and outpatient pulmonary follow-up. I would be happy to see the patient back in clinic. Lesions currently are too small to consider biopsy or bronchoscopy. Transthoracic needle aspiration unlikely to be diagnostic. Given the patient's clinical stability and improvement, would not recommend tissue diagnosis at this time. Would defer additional antibiotics to the patient's primary service as well as the infectious disease consultants. Of note the patient's procalcitonin is negative. Evaluation of the patient's pancytopenia deferred to the primary admitting service. Plan was discussed with the patient as well as family members at bedside. Questions were answered to the best of our ability. Feel free to contact us if we can be of additional assistance. Pulmonary will sign off at this point time History of Present Illness Reason for Consultation: Pulmonary Nodules Requesting Physician: Dr. Michael Mcdaniel MD Attending Physician: Michael Mcdaniel MD History of Present Illness Patient is a 66-year-old male with a significant past medical history of peripheral arterial disease, paroxysmal atrial fibrillation, hypertension, hyperlipidemia, CKD 3, and anemia of chronic disease. Reports that "a few weeks ago" he developed high fevers with a T-max of approximately 102 F. He had associated headaches with the fevers. Additionally, he has noticed night sweats for the past month. He was seen at his primary care provider's office and placed on an antibiotic which she reports has not provided any relief of symptoms. He has been utilizing [id number] Tylenol with moderate relief of fever symptoms. He was seen at his primary care provider's office today and directed to the emergency department given his ongoing symptoms and elevated creatinine from his baseline. Throughout evaluation, the patient had chest CT performed which demonstrated multiple pulmonary nodules. Pulmonary medicine has been consulted for evaluation of these nodes. Patient is currently being treated empirically with Zosyn and vancomycin. He has not had significant fevers throughout his stay. Overall, he reports feeling better at this time. He reports that he previously had a productive cough which is symptoms improved prior to arrival. His main complaint is been fevers and generalized malaise. He reports of occasional chest heaviness which is intermittent and without precipitating symptoms which has been ongoing for the past week or so. He smoked a pack of cigarettes per day for 20 years up until 6 months ago (20 pack year history). There is a significant family history of lung cancer as her sister approximately 40 years ago from lung CA. He has a brother who from bone cancer as well. No other known exposures. Patient did undergo a iliac stenting procedure of the right common iliac artery in august of this year. He has had no redness or swelling at this site. No tenderness palpation in that area. No discoloration of the nailbeds or infections of the extremities noted. Currently, the patient reports feeling better. His fevers have decreased. His cough has improved. He denies any current headaches, dizziness, lightheadedness, visual disturbances, palpitations, pleuritic pain, hemoptysis, nausea, vomiting, or abdominal discomfort. Allergies Allergy/AdvReac Type Severity Reaction Status Date / Time Penicillins Allergy Unknown UNKNOWN Verified 09/12/20 01:33 REACTION Home Medications Medication Instructions Recorded Confirmed Type amlodipine 10 mg tablet 10 mg PO DAILY 09/12/20 03/23/22 History aspirin 81 mg tablet,delayed 81 mg PO DAILY 09/12/20 03/23/22 History release atorvastatin 10 mg tablet 10 mg PO DAILY 09/12/20 03/23/22 History cilostazol 100 mg tablet 100 mg PO BID 09/12/20 03/23/22 History lisinopril 40 mg tablet 40 mg PO DAILY 09/12/20 03/23/22 History metoprolol tartrate 50 mg tablet 50 mg PO BID 09/12/20 03/23/22 History Patient History Medical History Anemia due to chronic kidney disease Chronic kidney disease, stage III (moderate) History of tobacco use HLD (hyperlipidemia) HTN (hypertension) PAF (paroxysmal atrial fibrillation) PVD (peripheral vascular disease) Renal artery stenosis Statin intolerance Surgical History H/O cervical spine surgery H/O endarterectomy S/P insertion of iliac artery stent Family History Mother No problems noted. Father Hypertension Brother Diabetes Sister Cancer Bone cancer Brother Cancer lung cancer Sister Cancer Lung cancer Social History Smoking Status: Former smoker Tobacco Type: Cigarettes packs per day: 0.5; Cigarettes Per Day: half pack per day; Smoking End Date: August 2021; Do You Dip or Chew Tobacco: No; Hx Alcohol Use: Yes Alcohol type: beer Hx Substance Use: No Preferred Language: Malaysian Communication Ability: Effective Restoration Technician Required: No Beliefs That Will Affect Care: None Current Living Situation: Spouse Other Information That Helps Us Care for You: No Feels Safe at Home: Yes Safety Concerns: Feels Safe At This Time Assistive Devices: None Review of Systems Review of Systems: A complete 10 point review of systems was reviewed with the patient with pertinent positives and negatives as per history of present illness. All else were negative. Physical Exam Physical Exam: VITAL SIGNS - Vital signs and nursing notes were reviewed. GENERAL - 66-year-old male appearing his stated age who is in no acute distress. Communicates well with provider and answers questions appropriately. HEAD - NC/AT. EYES - PERRL with EOMI bilaterally. Sclera anicteric. EARS - No deformities of external structures noted on gross examination bilaterally. NOSE - Midline and without cyanosis. No epistaxis or purulent drainage noted. MOUTH/OROPHARYNX - Without perioral cyanosis. Buccal mucosa pink and dry. NECK - Neck with FROM. Supple to palpation. No palpable lymphadenopathy. LUNGS - Chest wall symmetric without accessory muscle use, intercostals retractions, or central cyanosis. Normal vesicular breath sounds CTA B/L. No wheezes, rales, or rhonchi appreciated. CARDIAC - RRR with S1/S2. No murmur, rubs, or gallops appreciated. No reproducible tenderness to palpation appreciated over the anterior chest wall. ABDOMEN - Abdominal contour protuberant without pulsations or visible masses. BS normoactive all four quadrants. No tenderness, palpable masses, hepatosplenomegaly, or ascites noted. EXTREMITIES - No clubbing or peripheral cyanosis. No pretibial edema present. +3/5 radial and dorsalis pedis pulses palpated throughout. +5/5 strength noted in UE/LE bilaterally. NEUROLOGIC - Cranial nerves II through XII grossly intact. Sensory intact to light touch throughout. PSYCH - A&Ox3 and cooperates fully with examiner. Pt is very pleasant and interacts well with examiner. Results & Data Results & Data ([facility]) Vital Signs (Past 12 Hours) Vital Signs Temp Pulse Pulse Resp BP Pulse Ox O2 Del Method 03/24/22 09:54 76 03/24/22 07:00 36.9 C 83 18 142/71 H 94 Room Air 03/24/22 03:37 37.6 C H 92 H 20 134/80 94 Room Air 03/23/22 23:24 101 H 03/23/22 23:20 37.4 C 104 H 20 149/68 H 92 Room Air PG Care Time/CCT Total # of Minutes Spent Total Time Spent with Patient: Total time spent is greater than 50% in coordination of care (as documented) at patient's floor/unit and/or counseling patient: Coding Level of Care Code 53441 Initial Inpt Care Lvl 3 Diagnoses Multiple lung nodules R91.8 Pneumonia J18.9 Acute on chronic renal failure N17.9; N18.9
[2022-03-24] MEDS ORDERED: VANCOMYCIN HCL 1,000 MG in SODIUM CHLORIDE 0.9% 250 ML IV SCH (12:00)
--- NOTE | 2022-03-24 12:57 | Hospitalist Progress Note ---
Date of Service March 24, 2022 Assessment & Plan (1) Left lower lobe pneumonia: (2) Multiple lung nodules: Plan: Presents with persistent fever over past several weeks. Also has symptoms of cough and shortness of breath intermittently. History of 1/2 pack smoking per day for last 20 years. He quitted 6-month ago. CT chest showed innumerable pulmonary nodules concerning for metastatic disease versus less likely septic emboli. CT abdomen showed left basilar opacity. No intra-abdominal abnormality found. Patient's last colonoscopy was in February 2020; found to have tubular adenoma in ascending and sigmoid colon. Recommended to have colonoscopy in 3 years. Pro-Wilbur negative Plan; Currently on empiric Zosyn and vancomycin. Will await pulmonology recommendation regarding work-up for pulmonary nodules. Obtain echocardiogram. We will follow-up on blood culture. (3) Stage 3a chronic kidney disease (CKD): (4) STEFFANIE (acute kidney injury): Plan: - Cr. 2.2, baseline of 1.7 to 1.9. Improved with IV fluids. Stop IV fluids, encourage oral intake. Lisinopril on hold (5) Elevated liver enzymes: Plan: AST/ALT/ALP50, 70, 118 Will obtain liver ultrasound. Continue statin for now. (6) HTN (hypertension): Plan: - Continue metoprolol, will dose now Will hold lisinopril for today. Resume amlodipine. (7) HLD (hyperlipidemia): Plan: - Cont atorvastain (8) PVD (peripheral vascular disease): Plan: - Hx of iliac artery stent placement in August 2021, cont pletal, statin. No longer on DAPT since 2 months post surgery Plan DVT Heparin Full code Admission and Anticipated Discharge Date Admission Date: March 23, 2022 Subjective Patient seen and examined at bedside. He is comfortably lying in the bed; not in any distress. He denies any fever, chills, chest pain, shortness of breath. He is voiding well without any difficulties. Review of Systems Review of Systems: All systems reviewed & are unremarkable except as noted in Subjective Physical Exam Physical Exam: Constitutional: WD/WN, vitals as above, NAD, sitting up in bed, pleasant, conversing easily Respiratory: normal respiratory effort, lungs clear to auscultation, no wheeze, rales, rhonchi. Normal insp/exp effort, no accessory muscle use Cardiovascular: RRR, no murmur, no edema Vessels: no JVD or carotid bruit Chest: normal inspection of chest Abdomen: normal bowel sounds, soft, nontender, no hepatosplenomegaly Musculoskeletal: no cyanosis or clubbing, extremities motor strength 5/5 Skin: no rashes, warm and dry normal turgor Neurologic: PERRL, EOMI, accommodation nl, no face palsy, no dysarthria CN's II- XI intact bilaterally and moves all extremities Psychiatric: A+Ox3, euthymic affect Lymphatic: no cervical or axillary lymphadenopathy : deferred Results & Data Results & Data ([facility]) Vital Signs (Past 12 Hours) Vital Signs Temp Pulse Pulse Resp BP Pulse Ox O2 Del Method 03/24/22 11:50 36.6 C 90 18 171/81 H 94 Room Air 03/24/22 09:54 76 03/24/22 07:00 36.9 C 83 18 142/71 H 94 Room Air 03/24/22 03:37 37.6 C H 92 H 20 134/80 94 Room Air Laboratory Results Laboratory Results WBC 4.51 K/ul (4.8-10.8) L 03/24/22 05:35 RBC 4.20 M/uL (4.63-6.08) L 03/24/22 05:35 Hgb 12.4 g/dl (14.0-18.0) L 03/24/22 05:35 Hct 37.0 % (40.1-51.0) L 03/24/22 05:35 MCV 88.1 fL (80.0-100.0) 03/24/22 05:35 MCH 29.5 pg (25.0-34.0) 03/24/22 05:35 MCHC 33.5 g/dL (32.0-36.0) 03/24/22 05:35 RDW Std Deviation 42.8 fL (36.4-46.3) 03/24/22 05:35 RDW Coeff of Papito 13.2 % (11.5-14.5) 03/24/22 05:35 Plt Count 120 K/uL (130-400) L 03/24/22 05:35 MPV 9.6 fL (9.4-12.4) 03/24/22 05:35 Immature Gran % (Auto) 0.7 % 03/23/22 08:26 Neut % (Auto) 67.9 % 03/23/22 08:26 Lymph % (Auto) 15.7 % 03/23/22 08:26 Platte % (Auto) 11.5 % 03/23/22 08:26 Eos % (Auto) 3.8 % 03/23/22 08:26 Baso % (Auto) 0.4 % 03/23/22 08:26 Neut # (Auto) 3.07 K/uL (1.4-6.5) 03/23/22 08:26 Lymph # (Auto) 0.71 K/uL (1.2-3.4) L 03/23/22 08:26 Platte # (Auto) 0.52 K/uL (0.24-0.82) 03/23/22 08:26 Eos # (Auto) 0.17 K/uL (0-0.50) 03/23/22 08:26 Baso # (Auto) 0.02 K/uL (0-0.2) 03/23/22 08:26 Immature Gran # (Auto) 0.03 K/uL (0.00-0.02) H 03/23/22 08:26 Platelet Estimate Decreased (Normal) L 03/24/22 05:35 Sodium 132 mmol/L (136-145) L 03/24/22 05:35 Potassium 4.3 mmol/L (3.5-5.1) 03/24/22 05:35 Chloride 106 mmol/L (98-107) 03/24/22 05:35 Carbon Dioxide 20 mmol/L (21-32) L 03/24/22 05:35 Anion Gap 6 (3-11) 03/24/22 05:35 BUN 23 mg/dl (6-23) 03/24/22 05:35 Creatinine 1.91 mg/dl (0.6-1.4) H D 03/24/22 05:35 Est Cr Clr Drug Dosing 42.8 ml/min 03/24/22 05:35 Est GFR ( Amer) 41.4 ml/min 03/24/22 05:35 Est GFR (Non-Af Amer) 35.7 ml/min 03/24/22 05:35 BUN/Creatinine Ratio 12.0 (10-20) 03/24/22 05:35 Glucose 82 mg/dl (70-99(Fasting)) 03/24/22 05:35 Calcium 8.0 mg/dl (8.5-10.1) L 03/24/22 05:35 Magnesium 1.9 mg/dl (1.7-2.4) 03/23/22 08:26 Total Bilirubin 0.7 mg/dl (0.2-1.0) 03/24/22 05:35 Direct Bilirubin 0.1 mg/dl (0-0.2) 03/24/22 05:35 AST 50 U/L (13-39) H 03/24/22 05:35 ALT 70 U/L (7-52) H 03/24/22 05:35 Alkaline Phosphatase 118 U/L (34-104) H 03/24/22 05:35 Troponin I High Sens 69.2 pg/ml (0-20) H* D 03/23/22 20:25 Total Protein 6.1 gm/dl (6.0-8.3) 03/24/22 05:35 Albumin 3.4 gm/dl (3.4-5.0) 03/24/22 05:35 Globulin 3.4 gm/dl (2.5-4.0) 03/23/22 08:26 Albumin/Globulin Ratio 1.2 (0.9-2) 03/23/22 08:26 Procalcitonin 0.38 ng/ml (0-0.5) 03/23/22 08:26 Urine Color Yellow 03/23/22 20:13 Urine Appearance Clear (Clear) 03/23/22 20:13 Urine pH 5.5 (4.5-7.5) 03/23/22 20:13 Ur Specific Dent 1.017 (1.000-1.030) 03/23/22 20:13 Urine Protein Trace (Negative) H 03/23/22 20:13 Urine Glucose (UA) Negative (Negative) 03/23/22 20:13 Urine Ketones Negative (Negative) 03/23/22 20:13 Urine Blood Trace (Negative) H 03/23/22 20:13 Urine Nitrite Negative (Negative) 03/23/22 20:13 Urine Bilirubin Negative (Negative) 03/23/22 20:13 Urine Urobilinogen Negative (Negative) 03/23/22 20:13 Ur Leukocyte Esterase Negative (Negative) 03/23/22 20:13 Urine WBC (Auto) 0 /hpf (0-5) 03/23/22 20:13 Urine RBC (Auto) 0-4 /hpf (0-4) 03/23/22 20:13 U Hyaline Cast (Auto) 0 /lpf (0-5) 03/23/22 20:13 U Epithel Cells (Auto) 0-5 /lpf (0-5) 03/23/22 20:13 Urine Bacteria (Auto) Negative (Negative) 03/23/22 20:13 Random Vancomycin 9.8 mcg/ml (10-20) L 03/24/22 05:35 SARS-CoV-2 (PCR) NEGATIVE (Negative) 03/23/22 08:26 Influenza Type A (PCR) Negative (Neg) 03/23/22 08:26 Influenza Type B (PCR) Negative (Neg) 03/23/22 08:26 RSV (RT-PCR) Negative (Neg) 03/23/22 08:[address] 03/23/22 08:30 CT chest diagnostic wo con CLINICAL HISTORY: PE TECHNIQUE: Multidetector row helical CT of the chest was performed. Coronal and sagittal reformations were obtained. Automated dose lowering techniques and/or adjustment according to patient size were utilized for this exam. CT DOSE: 582.43 mGycm Comparison: Comparison is made to chest radiograph 05/04/2006 FINDINGS: Lungs and pleura: Innumerable pulmonary nodules are seen throughout bilateral lungs. Atelectasis is in the right lower lobe. Prominent nodules include the followin mm nodule in the right upper lobe (series 4 image 73) 9 mm nodule in the right lower lobe (image 134) 11 mm nodule in the right middle lobe (image 158) 5 mm nodule in the lingula (image 168) 10 mm nodule in the left lower lobe (image 131) Heart and pericardium: Physiologic pericardial fluid is noted. Vessels: Severe atherosclerotic changes in the aorta and coronary arteries. Evaluation for pulmonary embolus is limited due to noncontrast technique. Mediastinum and samson: Numerous calcified lymph nodes are seen. Chest wall and lower neck: Unremarkable. Abdomen: Unremarkable. Bones: Degenerative changes in the thoracic spine. IMPRESSION: 1. Innumerable pulmonary nodules concerning for metastatic disease versus less likely septic emboli. Correlation with history is recommended. 2. Evaluation for pulmonary embolus is limited by noncontrast technique. 3. Extensive calcified mediastinal lymph nodes may represent prior granulomatous disease versus posttreatment changes of metastatic lymphadenopathy. ACT 112: Negative or not required by law. Electronically signed by: Cristo Kapoor M.D. 03/23/2022 9:56 AM Venous Doppler Study 03/23/22 10:15 BILATERAL LOWER EXTREMITY VENOUS DOPPLER HISTORY: Elevated d-dimer. elevated dimer COMPARISON STUDY: None. FINDINGS: There is normal compressibility, flow, and augmentation within the bilateral lower extremity deep venous systems. IMPRESSION: No DVT within the right or left lower extremity. ACT 112: Negative or not required by law. Electronically signed by: Jaspreet Isaacs M.D. 03/23/2022 3:16 PM Abdomen/Pelvis CT 03/23/22 12:20 CT SCAN OF THE ABDOMEN AND PELVIS WITHOUT IV CONTRAST CLINICAL HISTORY: Right-sided abdominal pain. Abnormal chest CT with possible pulmonary metastatic disease. COMPARISON STUDY: Lumbar spine radiographs dated 09/12/2013. Chest CT dated 03/23/2022. TECHNIQUE: CT scan of the abdomen and pelvis is performed from the lung bases to the proximal femora. Images are reviewed in the axial, sagittal, and coronal planes. IV contrast was not administered for this examination as per the referring clinician. Note that the examination was performed and significantly suboptimal fashion without oral and IV contrast. A dose lowering technique was utilized adhering to the principles of ALARA. CT DOSE: 810.52 mGy.cm FINDINGS: Lung bases: The heart is enlarged noting a small to moderate pericardial effusion. The coronary arteries are densely calcified. Airspace consolidation is seen at the left lung base. There are numerous (greater than 10) irregular lower lobe pulmonary nodules which are highly suspicious for metastatic disease. A market survey representative nodule in the left lower lobe on image #6 measures 1.3 cm and a market survey representative nodule in the right middle lobe on image #1 measures 1.2 cm. There is a small hiatal hernia. There are calcified mediastinal lymph nodes. Liver: The unenhanced liver is normal in size, contour, and attenuation. There i s no intrahepatic biliary ductal dilatation. Gallbladder: Unremarkable. Spleen: Normal in size and attenuation. Pancreas: Unremarkable. Adrenal glands: Unremarkable. Kidneys: The unenhanced kidneys demonstrate cortical atrophy and are without hydronephrosis. There are no renal calculi identified. There is no evidence of contour deforming renal mass lesion. Abdominal vasculature: There is advanced atherosclerotic calcification and ectasia of the abdominal aorta. A stent is noted in the right common iliac artery. There is likely a high-grade stenosis versus occlusion of the left supe rficial femoral artery seen on image #434. This is not well assessed without IV contrast. Bowel: There is no bowel obstruction. The appendix is well-visualized and normal. Peritoneum: There is no intraperitoneal free air or abdominal ascites. Lymphadenopathy: No pathologically enlarged lymph nodes are identified in the abdomen or pelvis. Calcified nodes are seen in the upper abdomen. Pelvic viscera: The prostate gland is enlarged and heterogeneous. The bladder is distended, the wall appears thickened/trabeculated indicating chronic outlet obstruction. Postsurgical changes noted in the right groin. Skeletal structures: The skeletal structures are osteopenic. There is mild to moderate lumbosacral spondylosis. No lytic or blastic lesions are seen. IMPRESSION: 1. No acute infectious or inflammatory findings are identified in the abdomen or pelvis. 2. There is no evidence of intra-abdominal metastatic disease on this unenhanced examination. 3. Numerous pathologically indeterminate lower lobe pulmonary nodules are similar to today's chest CT. Also these could potentially be infectious/inflammatory, the appearance is more suspicious for multifocal pulmonary metastatic disease. At a minimum, short-term CT follow-up is recommend. 4. There is left basilar consolidation. Correlate clinically for evidence of pneumonia/aspiration pneumonitis. 5. Additional findings as above. ACT 112: Negative or not required by law. Electronically signed by: Aroldo Carrasco M.D. 03/23/2022 12:53 PM
--- NOTE | 2022-03-24 13:22 | Nephrology Progress Note ---
Date of Service March 24, 2022 Assessment & Plan (1) Acute on chronic renal failure: Plan: now resolved nonoliguric stage 1 STEFFANIE on CKD w/ baseline creatinine high ones in 2021, prerenal etiology. chemistries, volume status ok though mild drop in bicarb noted w/ NAGMA from NS NS stopped appropriately daily bmp cont to avoid IV contrast for CT -cont to hold lisinopril -follow vanco levels -cont amlodipine -recommend resume lisinopril to [place] will sign off NEPHRO D/C RECS -d/c on lisinopril -continue nsaid avoidance -check bmp weekly x 2 to be ordered by nephro RN after d/c -renal f/u to depend on labs; for now keep regularly scheduled f/u as per last OV note (w/ PA) Admission and Anticipated Discharge Date Admission Date: March 23, 2022 Subjective no interval clinical events; no f since admission; denies voiding or breathing c/o; family at bedside Review of Systems 2 Review of Systems: All systems reviewed & are unremarkable except as noted in Subjective Physical Exam Constitutional: well developed, well nourished and cooperative; no acute distress Eyes: EOM intact bilaterally ENMT: Ears: no external ear abnormality Nose: no external nose abnormality Mouth: + dry oral mucous membranes Neck: no nuchal rigidity Respiratory: normal respiratory effort Auscultation: lungs clear to auscultation bilaterally and + diminished lung sounds Cardiovascular: Rate/Rhythm: regular rate and regular rhythm Extremities: no edema Gastrointestinal (Abdomen): Inspection/Auscultation: normal bowel sounds Percussion/Palpation: abdomen soft; abdomen nontender Musculoskeletal: Extremities: strength 5/5 throughout Skin: no rashes, warm and dry Neurologic: major, fluent speech, no tremor Psychiatric: Orientation: oriented x 3 Speech: normal rate/rhythm/volume of speech Results & Data ([facility]) Vital Signs (Past 12 Hours) Vital Signs Temp Pulse Pulse Resp BP Pulse Ox O2 Del Method 03/24/22 11:50 36.6 C 90 18 171/81 H 94 Room Air 03/24/22 09:54 76 03/24/22 07:00 36.9 C 83 18 142/71 H 94 Room Air 03/24/22 03:37 37.6 C H 92 H 20 134/80 94 Room Air Laboratory Results 03/24/22 05:35 03/24/22 05:35
--- NOTE | 2022-03-24 15:16 | Ultrasound Report ---
US arterial duplex LE RT CLINICAL HISTORY: eval RIGHT iliac stent for ??infectious source COMPARISON STUDY: None. FINDINGS: Normal velocities and biphasic waveforms seen within the visualized right iliac arteries, r ight common femoral artery, and right superficial femoral artery. Specifically, the right iliac arter y stent appears patent. No adjacent fluid collections identified. IMPRESSION: The right iliac artery stent appears patent. There are no associated fluid collections. ACT 112: Negative or not required by law. Electronically signed by: Rios Maxwell M.D. 03/24/2022 3:14 PM
--- NOTE | 2022-03-24 15:27 | Ultrasound Report ---
ABDOMINAL ULTRASOUND, RIGHT UPPER QUADRANT HISTORY: Elevated liver enzymes. COMPARISON: Abdomen and pelvis CT 03/23/2022 FINDINGS: Pancreas: The pancreas demonstrates a normal echotexture. Liver: The liver is echogenic consistent with fatty change. Gallbladder: No gallbladder wall thickening. No gallstones. CBD: 6 mm. Right kidney: No hydronephrosis. IMPRESSION: 1. Hepatic steatosis. 2. Normal gallbladder. No gallstones. ACT 112: Negative or not required by law. Electronically signed by: Rios Maxwell M.D. 03/24/2022 3:25 PM
[2022-03-24] MEDS: amLODIPine BESYLATE 5 MG TAB PO SCH (15:50)
[2022-03-24] MEDS: ACETAMINOPHEN 325 MG TAB PO PRN (19:58)
[2022-03-25] MEDS: PIPERACILLIN/TAZOBACTAM 3.375 GM in DEXTROSE 5% 100 ML IV SCH ×2 (01:40→10:44)
[2022-03-25] MEDS: ACETAMINOPHEN 325 MG TAB PO PRN (04:49)
[2022-03-25 06:16] LABS: Basophils # (auto) 0.02 K/uL (0-0.2); Basophils % (auto) 0.5 %; Eosinophils # (auto) 0.21 K/uL (0-0.50); Hematocrit (blood only) 37.2 % (40.1-51.0); Hemoglobin 12.6 g/dl (14.0-18.0); Immature Granulocytes # (auto) 0.02 K/uL (0.00-0.02); Immature Granulocytes % (auto) 0.5 %; Lymphocytes # (auto) 0.61 K/uL (1.2-3.4); Lymphocytes % (auto) 14.4 %; Mean Platelet Volume 9.1 fL (9.4-12.4); Monocytes # (auto) 0.49 K/uL (0.24-0.82); Monocytes % (auto) 11.6 %; Neutrophils # (auto) 2.88 K/uL (1.4-6.5); Platelet Count 127 K/uL (130-400); White Blood Count 4.23 K/ul (4.8-10.8)
[2022-03-25 06:39] LABS: Acanthocytes 1+; Echinocytes 3+; Mean Corpuscular Hemoglobin 29.5 pg (25.0-34.0); Mean Corpuscular Hgb Conc 33.9 g/dL (32.0-36.0); Mean Corpuscular Volume 87.1 fL (80.0-100.0); Polychromasia 1+; RDW Coefficient of Variation 13.2 % (11.5-14.5); RDW Standard Deviation 41.8 fL (36.4-46.3); Red Blood Count 4.27 M/uL (4.63-6.08); Tear Drop Cells 1+
[2022-03-25 06:44] LABS: BUN Creatinine Ratio 11.3 (10-20); Calcium 8.5 mg/dl (8.5-10.1); Est GFR (African American) 42.7 ml/min; Est GFR (Non-African American) 36.9 ml/min
[2022-03-25] MEDS: VANCOMYCIN HCL 1,250 MG in SODIUM CHLORIDE 0.9% 250 ML IV SCH (08:38)
[2022-03-25] MEDS: METOPROLOL TARTRATE 50 MG TAB PO SCH ×2 (08:47→20:39)
[2022-03-25] MEDS: ATORVASTATIN 10 MG TAB PO SCH (08:48)
[2022-03-25] MEDS: amLODIPine BESYLATE 5 MG TAB PO SCH (08:48)
[2022-03-25] MEDS: ASPIRIN 81 MG ECTAB PO SCH (08:48)
[2022-03-25] MEDS: AZITHROMYCIN 250 MG TAB PO SCH (09:56)
[2022-03-25] MEDS: HEPARIN SOD 5,000 UNIT/0.5 ML VIAL SQ SCH ×2 (09:56→20:39)
[2022-03-25] MEDS ORDERED: cefTRIAXone SODIUM 1,000 MG in DEXTROSE 5% AD-VAN 50 ML IV SCH (10:00)
[2022-03-25] MEDS: cefTRIAXone SODIUM 2,000 MG in DEXTROSE 5% 50 ML IV SCH (10:38)
--- NOTE | 2022-03-25 12:17 | Hospitalist Progress Note ---
Date of Service March 25, 2022 Assessment & Plan (1) Left lower lobe pneumonia: (2) Multiple lung nodules: Plan: Presents with persistent fever over past several weeks. Also has symptoms of cough and shortness of breath intermittently. History of 1/2 pack smoking per day for last 20 years. He quitted 6-month ago. CT chest showed innumerable pulmonary nodules concerning for metastatic disease versus less likely septic emboli. CT abdomen showed left basilar opacity. No intra-abdominal abnormality found. Patient's last colonoscopy was in February 2020; found to have tubular adenoma in ascending and sigmoid colon. Recommended to have colonoscopy in 3 years. Pro-Wilbur negative Echocardiogram shows EF of 60 to 65% with mild concentric LVH. No segmental wall motion abnormality seen. Blood culture from 03/23 no growth in 24 hours. Plan; As per pulmonology, more classic appearance for septic emboli rather than true pneumonia. Recommended follow-up CT in 8 to 10 weeks with outpatient pulmonology follow-up. Transthoracic needle aspiration or bronchoscopy at the time being. Recommended ID consultation. Infectious disease evaluated the patient; recommended broad-spectrum antibiotic for now until cultures result are obtained. Also recommended to add azithromycin until Legionella is ruled out. Continue on ceftriaxone, Vanco and azithromycin. Will reach out to ID again if blood culture remains negative for 48 hours to decide on long-term antibiotics. ID also Recommended to sent HIV test, viral hepatitis, repeat blood cultures, follow blood cultures, AFB blood cultures, 1 3 beta D glucan, Anaplasma PCR. Also recommended to send sputum culture for Legionella and AFB. From urine, antigen for Legionella, Blastomyces and histoplasma sent. (3) Stage 3a chronic kidney disease (CKD): (4) STEFFANIE (acute kidney injury): Plan: - Cr. 2.2, baseline of 1.7 to 1.9. Improved with IV fluids. encourage oral intake. no iv fluids Lisinopril on hold for now (5) Elevated liver enzymes: Plan: AST/ALT/ALP50, 70, 118 Liver ultrasound showed hepatic steatosis Hepatitis panel pending (6) HTN (hypertension): Plan: - Continue metoprolol, will dose now Will hold lisinopril for now. Resume amlodipine. (7) HLD (hyperlipidemia): Plan: - Cont atorvastain (8) PVD (peripheral vascular disease): Plan: - Hx of iliac artery stent placement in August 2021, cont pletal, statin. No longer on DAPT since 2 months post surgery - Duplex scan of LE- right iliac artery stent patent. Plan DVT Heparin Full code Admission and Anticipated Discharge Date Admission Date: March 23, 2022 Subjective Patient seen and examined at bedside. Is comfortably lying in the bed; not in any distress. Low-grade temperature of 38.3 C was noted last evening. Patient reported sweating with episode. Review of Systems Review of Systems: All systems reviewed & are unremarkable except as noted in Subjective Physical Exam Physical Exam: Constitutional: WD/WN, vitals as above, NAD, sitting up in bed, pleasant, conversing easily Respiratory: normal respiratory effort, lungs clear to auscultation, no wheeze, rales, rhonchi. Normal insp/exp effort, no accessory muscle use Cardiovascular: RRR, no murmur, no edema Vessels: no JVD or carotid bruit Chest: normal inspection of chest Abdomen: normal bowel sounds, soft, nontender, no hepatosplenomegaly Musculoskeletal: no cyanosis or clubbing, extremities motor strength 5/5 Skin: no rashes, warm and dry normal turgor Neurologic: PERRL, EOMI, accommodation nl, no face palsy, no dysarthria CN's II- XI intact bilaterally and moves all extremities Psychiatric: A+Ox3, euthymic affect Lymphatic: no cervical or axillary lymphadenopathy : deferred Results & Data Results & Data ([facility]) Vital Signs (Past 12 Hours) Vital Signs Temp Pulse Pulse Resp BP Pulse Ox O2 Del Method 03/25/22 11:57 36.8 C 69 19 135/69 94 Room Air 03/25/22 11:52 75 03/25/22 08:10 36.7 C 73 16 130/65 94 Room Air 03/25/22 04:11 37.2 C 82 20 151/74 H 93 Room Air Laboratory Results Laboratory Results WBC 4.23 K/ul (4.8-10.8) L 03/25/22 05:36 RBC 4.27 M/uL (4.63-6.08) L 03/25/22 05:36 Hgb 12.6 g/dl (14.0-18.0) L 03/25/22 05:36 Hct 37.2 % (40.1-51.0) L 03/25/22 05:36 MCV 87.1 fL (80.0-100.0) 03/25/22 05:36 MCH 29.5 pg (25.0-34.0) 03/25/22 05:36 MCHC 33.9 g/dL (32.0-36.0) 03/25/22 05:36 RDW Std Deviation 41.8 fL (36.4-46.3) 03/25/22 05:36 RDW Coeff of Papito 13.2 % (11.5-14.5) 03/25/22 05:36 Plt Count 127 K/uL (130-400) L 03/25/22 05:36 MPV 9.1 fL (9.4-12.4) L 03/25/22 05:36 Immature Gran % (Auto) 0.5 % 03/25/22 05:36 Neut % (Auto) 68.0 % 03/25/22 05:36 Lymph % (Auto) 14.4 % 03/25/22 05:36 Cascade % (Auto) 11.6 % 03/25/22 05:36 Eos % (Auto) 5.0 % 03/25/22 05:36 Baso % (Auto) 0.5 % 03/25/22 05:36 Neut # (Auto) 2.88 K/uL (1.4-6.5) 03/25/22 05:36 Lymph # (Auto) 0.61 K/uL (1.2-3.4) L 03/25/22 05:36 Cascade # (Auto) 0.49 K/uL (0.24-0.82) 03/25/22 05:36 Eos # (Auto) 0.21 K/uL (0-0.50) 03/25/22 05:36 Baso # (Auto) 0.02 K/uL (0-0.2) 03/25/22 05:36 Immature Gran # (Auto) 0.02 K/uL (0.00-0.02) 03/25/22 05:36 Platelet Estimate Decreased (Normal) L 03/24/22 05:35 Polychromasia 1+ 03/25/22 05:36 Tear Drop Cells 1+ 03/25/22 05:36 Echinocytes 3+ 03/25/22 05:36 Acanthocytes (Spur) 1+ 03/25/22 05:36 ESR 21 mm/hr (0-20) H 03/24/22 05:35 Sodium 134 mmol/L (136-145) L 03/25/22 05:36 Potassium 4.0 mmol/L (3.5-5.1) 03/25/22 05:36 Chloride 105 mmol/L (98-107) 03/25/22 05:36 Carbon Dioxide 21 mmol/L (21-32) 03/25/22 05:36 Anion Gap 8 (3-11) 03/25/22 05:36 BUN 21 mg/dl (6-23) 03/25/22 05:36 Creatinine 1.86 mg/dl (0.6-1.4) H 03/25/22 05:36 Est Cr Clr Drug Dosing 44.0 ml/min 03/25/22 05:36 Est GFR ( Amer) 42.7 ml/min 03/25/22 05:36 Est GFR (Non-Af Amer) 36.9 ml/min 03/25/22 05:36 BUN/Creatinine Ratio 11.3 (10-20) 03/25/22 05:36 Glucose 82 mg/dl (70-99(Fasting)) 03/25/22 05:36 Calcium 8.5 mg/dl (8.5-10.1) 03/25/22 05:36 Magnesium 1.9 mg/dl (1.7-2.4) 03/23/22 08:26 Total Bilirubin 0.7 mg/dl (0.2-1.0) 03/24/22 05:35 Direct Bilirubin 0.1 mg/dl (0-0.2) 03/24/22 05:35 AST 50 U/L (13-39) H 03/24/22 05:35 ALT 70 U/L (7-52) H 03/24/22 05:35 Alkaline Phosphatase 118 U/L (34-104) H 03/24/22 05:35 Troponin I High Sens 69.2 pg/ml (0-20) H* D 03/23/22 20:25 C-Reactive Protein 3.27 mg/dl (0-0.5) H 03/24/22 05:35 Total Protein 6.1 gm/dl (6.0-8.3) 03/24/22 05:35 Albumin 3.4 gm/dl (3.4-5.0) 03/24/22 05:35 Globulin 3.4 gm/dl (2.5-4.0) 03/23/22 08:26 Albumin/Globulin Ratio 1.2 (0.9-2) 03/23/22 08:26 Procalcitonin 0.38 ng/ml (0-0.5) 03/23/22 08:26 Urine Color Yellow 03/23/22 20:13 Urine Appearance Clear (Clear) 03/23/22 20:13 Urine pH 5.5 (4.5-7.5) 03/23/22 20:13 Ur Specific Spangler 1.017 (1.000-1.030) 03/23/22 20:13 Urine Protein Trace (Negative) H 03/23/22 20:13 Urine Glucose (UA) Negative (Negative) 03/23/22 20:13 Urine Ketones Negative (Negative) 03/23/22 20:13 Urine Blood Trace (Negative) H 03/23/22 20:13 Urine Nitrite Negative (Negative) 03/23/22 20:13 Urine Bilirubin Negative (Negative) 03/23/22 20:13 Urine Urobilinogen Negative (Negative) 03/23/22 20:13 Ur Leukocyte Esterase Negative (Negative) 03/23/22 20:13 Urine WBC (Auto) 0 /hpf (0-5) 03/23/22 20:13 Urine RBC (Auto) 0-4 /hpf (0-4) 03/23/22 20:13 U Hyaline Cast (Auto) 0 /lpf (0-5) 03/23/22 20:13 U Epithel Cells (Auto) 0-5 /lpf (0-5) 03/23/22 20:13 Urine Bacteria (Auto) Negative (Negative) 03/23/22 20:13 Stl C. diff Tox B Gene Negative Cdiff Gene (Neg) 03/25/22 08:13 Random Vancomycin 9.8 mcg/ml (10-20) L 03/24/22 05:35 Anaplasma Smear See Comment 03/25/22 05:36 Babesia Smear See Comment 03/25/22 05:36 SARS-CoV-2 (PCR) NEGATIVE (Negative) 03/23/22 08:26 Influenza Type A (PCR) Negative (Neg) 03/23/22 08:26 Influenza Type B (PCR) Negative (Neg) 03/23/22 08:26 RSV (RT-PCR) Negative (Neg) 03/23/22 08:[address] 03/23/22 08:30 CT chest diagnostic wo con CLINICAL HISTORY: PE TECHNIQUE: Multidetector row helical CT of the chest was performed. Coronal and sagittal reformations were obtained. Automated dose lowering techniques and/or adjustment according to patient size were utilized for this exam. CT DOSE: 582.43 mGycm Comparison: Comparison is made to chest radiograph 05/04/2006 FINDINGS: Lungs and pleura: Innumerable pulmonary nodules are seen throughout bilateral lungs. Atelectasis is in the right lower lobe. Prominent nodules include the followin mm nodule in the right upper lobe (series 4 image 73) 9 mm nodule in the right lower lobe (image 134) 11 mm nodule in the right middle lobe (image 158) 5 mm nodule in the lingula (image 168) 10 mm nodule in the left lower lobe (image 131) Heart and pericardium: Physiologic pericardial fluid is noted. Vessels: Severe atherosclerotic changes in the aorta and coronary arteries. Evaluation for pulmonary embolus is limited due to noncontrast technique. Mediastinum and samson: Numerous calcified lymph nodes are seen. Chest wall and lower neck: Unremarkable. Abdomen: Unremarkable. Bones: Degenerative changes in the thoracic spine. IMPRESSION: 1. Innumerable pulmonary nodules concerning for metastatic disease versus less likely septic emboli. Correlation with history is recommended. 2. Evaluation for pulmonary embolus is limited by noncontrast technique. 3. Extensive calcified mediastinal lymph nodes may represent prior granulomatous disease versus posttreatment changes of metastatic lymphadenopathy. ACT 112: Negative or not required by law. Electronically signed by: Cristo Kapoor M.D. 03/23/2022 9:56 AM Venous Doppler Study 03/23/22 10:15 BILATERAL LOWER EXTREMITY VENOUS DOPPLER HISTORY: Elevated d-dimer. elevated dimer COMPARISON STUDY: None. FINDINGS: There is normal compressibility, flow, and augmentation within the bilateral lower extremity deep venous systems. IMPRESSION: No DVT within the right or left lower extremity. ACT 112: Negative or not required by law. Electronically signed by: Jaspreet Isaacs M.D. 03/23/2022 3:16 PM Abdomen/Pelvis CT 03/23/22 12:20 CT SCAN OF THE ABDOMEN AND PELVIS WITHOUT IV CONTRAST CLINICAL HISTORY: Right-sided abdominal pain. Abnormal chest CT with possible pulmonary metastatic disease. COMPARISON STUDY: Lumbar spine radiographs dated 09/12/2013. Chest CT dated 03/23/2022. TECHNIQUE: CT scan of the abdomen and pelvis is performed from the lung bases to the proximal femora. Images are reviewed in the axial, sagittal, and coronal planes. IV contrast was not administered for this examination as per the referring clinician. Note that the examination was performed and significantly suboptimal fashion without oral and IV contrast. A dose lowering technique was utilized adhering to the principles of ALARA. CT DOSE: 810.52 mGy.cm FINDINGS: Lung bases: The heart is enlarged noting a small to moderate pericardial effusion. The coronary arteries are densely calcified. Airspace consolidation is seen at the left lung base. There are numerous (greater than 10) irregular lower lobe pulmonary nodules which are highly suspicious for metastatic disease. A customer loyalty representative nodule in the left lower lobe on image #6 measures 1.3 cm and a customer loyalty representative nodule in the right middle lobe on image #1 measures 1.2 cm. There is a small hiatal hernia. There are calcified mediastinal lymph nodes. Liver: The unenhanced liver is normal in size, contour, and attenuation. There is no intrahepatic biliary ductal dilatation. Gallbladder: Unremarkable. Spleen: Normal in size and attenuation. Pancreas: Unremarkable. Adrenal glands: Unremarkable. Kidneys: The unenhanced kidneys demonstrate cortical atrophy and are without hydronephrosis. There are no renal calculi identified. There is no evidence of contour deforming renal mass lesion. Abdominal vasculature: There is advanced atherosclerotic calcification and ectasia of the abdominal aorta. A stent is noted in the right common iliac artery. There is likely a high-grade stenosis versus occlusion of the left superficial femoral artery seen on image #434. This is not well assessed without IV contrast. Bowel: There is no bowel obstruction. The appendix is well-visualized and normal. Peritoneum: There is no intraperitoneal free air or abdominal ascites. Lymphadenopathy: No pathologically enlarged lymph nodes are identified in the abdomen or pelvis. Calcified nodes are seen in the upper abdomen. Pelvic viscera: The prostate gland is enlarged and heterogeneous. The bladder is distended, the wall appears thickened/trabeculated indicating chronic outlet obstruction. Postsurgical changes noted in the right groin. Skeletal structures: The skeletal structures are osteopenic. There is mild to moderate lumbosacral spondylosis. No lytic or blastic lesions are seen. IMPRESSION: 1. No acute infectious or inflammatory findings are identified in the abdomen or pelvis. 2. There is no evidence of intra-abdominal metastatic disease on this unenhanced examination. 3. Numerous pathologically indeterminate lower lobe pulmonary nodules are similar to today's chest CT. Also these could potentially be infectious/inflammatory, the appearance is more suspicious for multifocal pulmonary metastatic disease. At a minimum, short-term CT follow-up is recommend. 4. There is left basilar consolidation. Correlate clinically for evidence of pneumonia/aspiration pneumonitis. 5. Additional findings as above. ACT 112: Negative or not required by law. Electronically signed by: Aroldo Carrasco M.D. 03/23/2022 12:53 PM Liver Ultrasound 03/24/22 07:49 ABDOMINAL ULTRASOUND, RIGHT UPPER QUADRANT HISTORY: Elevated liver enzymes. COMPARISON: Abdomen and pelvis CT 03/23/2022 FINDINGS: Pancreas: The pancreas demonstrates a normal echotexture. Liver: The liver is echogenic consistent with fatty change. Gallbladder: No gallbladder wall thickening. No gallstones. CBD: 6 mm. Right kidney: No hydronephrosis. IMPRESSION: 1. Hepatic steatosis. 2. Normal gallbladder. No gallstones. ACT 112: Negative or not required by law. Electronically signed by: Rios Maxwell M.D. 03/24/2022 3:25 PM Duplex Scan Lower Extremity Artery 03/24/22 13:44 US arterial duplex LE RT CLINICAL HISTORY: eval RIGHT iliac stent for ??infectious source COMPARISON STUDY: None. FINDINGS: Normal velocities and biphasic waveforms seen within the visualized right iliac arteries, right common femoral artery, and right superficial femoral artery. Specifically, the right iliac artery stent appears patent. No adjacent fluid collections identified. IMPRESSION: The right iliac artery stent appears patent. There are no associated fluid collections. ACT 112: Negative or not required by law. Electronically signed by: Rios Maxwell M.D. 03/24/2022 3:14 PM
[2022-03-25] MEDS: ZOLPIDEM TARTRATE 5 MG TAB PO PRN (21:56)
[2022-03-26] MEDS: ACETAMINOPHEN 325 MG TAB PO PRN (03:52)
[2022-03-26 05:01] LABS: Basophils # (auto) 0.01 K/uL (0-0.2); Basophils % (auto) 0.2 %; Eosinophils # (auto) 0.26 K/uL (0-0.50); Eosinophils % (auto) 5.7 %; Hematocrit (blood only) 37.4 % (40.1-51.0); Hemoglobin 12.6 g/dl (14.0-18.0); Immature Granulocytes # (auto) 0.02 K/uL (0.00-0.02); Immature Granulocytes % (auto) 0.4 %; Lymphocytes # (auto) 0.81 K/uL (1.2-3.4); Lymphocytes % (auto) 17.7 %; Mean Corpuscular Hemoglobin 29.6 pg (25.0-34.0); Mean Corpuscular Hgb Conc 33.7 g/dL (32.0-36.0); Mean Platelet Volume 9.3 fL (9.4-12.4); Monocytes # (auto) 0.52 K/uL (0.24-0.82); Monocytes % (auto) 11.4 %; Neutrophils # (auto) 2.95 K/uL (1.4-6.5); Neutrophils % (auto) 64.6 %; Platelet Count 145 K/uL (130-400); RDW Coefficient of Variation 13.6 % (11.5-14.5); RDW Standard Deviation 43.7 fL (36.4-46.3); Red Blood Count 4.25 M/uL (4.63-6.08); White Blood Count 4.57 K/ul (4.8-10.8)
[2022-03-26 05:21] LABS: BUN Creatinine Ratio 10.4 (10-20); Calcium 8.9 mg/dl (8.5-10.1); Est GFR (African American) 43.9 ml/min; Est GFR (Non-African American) 37.9 ml/min; Potassium 4.1 mmol/L (3.5-5.1)
[2022-03-26] MEDS ORDERED: VANCOMYCIN LEVEL ONE (07:00)
[2022-03-26] MEDS: VANCOMYCIN HCL 1,250 MG in SODIUM CHLORIDE 0.9% 250 ML IV SCH (07:59)
[2022-03-26] MEDS: METOPROLOL TARTRATE 50 MG TAB PO SCH ×2 (09:21→20:35)
[2022-03-26] MEDS: AZITHROMYCIN 250 MG TAB PO SCH (09:21)
[2022-03-26] MEDS: ATORVASTATIN 10 MG TAB PO SCH (09:22)
[2022-03-26] MEDS: ASPIRIN 81 MG ECTAB PO SCH (09:22)
[2022-03-26] MEDS: amLODIPine BESYLATE 5 MG TAB PO SCH (09:22)
[2022-03-26] MEDS: HEPARIN SOD 5,000 UNIT/0.5 ML VIAL SQ SCH ×2 (09:24→20:35)
--- NOTE | 2022-03-26 09:30 | Pharmacy Report ---
Pharmacy PK ABX Note - Date of Service March 26, 2022 - Assessment and Plan Assessment 66 year old M receiving empiric vancomycin/ceftriaxone for treatment of lung nodules. ID consulted/following with hospitalist. Antibiotics extended to 03/30 per provider. Pertinent microbiologic data includes: BC from 03/23 NGTD, BC from 03/25 pending. Random level this AM predicting just above goal range for AUC, however, level is also lower than predicted. Therefore will adjust dose to target middle of target AUC. Plan Vancomycin * Random level this AM 9.4 * Adjust maintenance dose to 1250 mg q18H to begin 03/27 @0000 * Regimen is predicted to achieve target AUC/MISSY of 400-600 mg/L.hr * Random to be ordered if continued Pharmacy will continue to follow and will adjust dose/frequency as necessary. Thank you. Pharmacy has transitioned to AUC monitoring for vancomycin. AUC/MISSY is the preferred PK/PD target and is associated with decreased risk of nephrotoxicity compared to traditional trough targets.
[2022-03-26] MEDS: cefTRIAXone SODIUM 2,000 MG in DEXTROSE 5% 50 ML IV SCH (10:36)
--- NOTE | 2022-03-26 18:14 | Hospitalist Progress Note ---
Date of Service March 26, 2022 Assessment & Plan (1) Left lower lobe pneumonia: (2) Multiple lung nodules: Plan: Presents with persistent fever over past several weeks. Also has symptoms of cough and shortness of breath intermittently. History of 1/2 pack smoking per day for last 20 years. He quitted 6-month ago. CT chest showed innumerable pulmonary nodules concerning for metastatic disease versus less likely septic emboli. CT abdomen showed left basilar opacity. No intra-abdominal abnormality found. Patient's last colonoscopy was in February 2020; found to have tubular adenoma in ascending and sigmoid colon. Recommended to have colonoscopy in 3 years. Pro-Wilbur negative Echocardiogram shows EF of 60 to 65% with mild concentric LVH. No segmental wall motion abnormality seen. Blood culture from 03/23 no growth in 24 hours. Plan; As per pulmonology, more classic appearance for septic emboli rather than true pneumonia. Recommended follow-up CT in 8 to 10 weeks with outpatient pulmonology follow-up. Transthoracic needle aspiration or bronchoscopy at the time being. Recommended ID consultation. Infectious disease evaluated the patient; recommended broad-spectrum antibiotic for now until cultures result are obtained. Also recommended to add azithromycin until Legionella is ruled out. Continue on ceftriaxone, Vanco and azithromycin. Will reach out to ID again if blood culture remains negative for 48 hours to decide on long-term antibiotics. ID also Recommended to sent HIV test, viral hepatitis, repeat blood cultures, follow blood cultures, AFB blood cultures, 1 3 beta D glucan, Anaplasma PCR. Also recommended to send sputum culture for Legionella and AFB. From urine, antigen for Legionella, Blastomyces and histoplasma sent. Blood culture remains negative and sputum culture collected today -Pending Case discussed with ID that recommended to change ceftriaxone to Augmentin if blood culture remain negative Noted patient to have an allergy with penicillin but patient received 7 doses of IV Zosyn during this admission course. Doubt patient has a true allergy with penicillin. ID suggested to give a low dose of amoxicillin and to watch for any allergy reaction. Discussed with patient and he agreed to try the amoxicillin while in the hospital since he got Zosyn with no side effect. He understood the risk such as rash, itchiness, swelling and anaphylaxis reaction. Spoke to nurse to monitor pt closely for any sign of allergic reaction and to notify the PCP YOSELYN if any reaction noted. Consider to discontinue IV vancomycin Continue Azithromycin daily (3) Stage 3a chronic kidney disease (CKD): (4) STEFFANIE (acute kidney injury): Plan: - Cr. 2.2, baseline of 1.7 to 1.9. Creatinine 1.8 today Improved with IV fluids. encourage oral intake. no iv fluids Lisinopril on hold for now (5) Elevated liver enzymes: Plan: AST/ALT/ALP50, 70, 118 Liver ultrasound showed hepatic steatosis Hepatitis panel pending (6) HTN (hypertension): Plan: Continue metoprolol, will dose now Will resume lisinopril tomorrow (7) HLD (hyperlipidemia): Plan: - Cont atorvastain (8) PVD (peripheral vascular disease): Plan: - Hx of iliac artery stent placement in August 2021, cont pletal, statin. No longer on DAPT since 2 months post surgery - Duplex scan of LE- right iliac artery stent patent. Plan DVT Heparin on Full code Admission and Anticipated Discharge Date Admission Date: March 23, 2022 Subjective Patient seen and examined for follow Lying in bed with no acute distress Pt said that last night he had a low grade fever and this morning he was sweating He said that he feels much better now Later i checked on him, family member at bedside With his permission I updated his an the rest of the family member Denies any chest pain, palpitation and SOB Review of Systems Review of Systems: All systems reviewed & are unremarkable except as noted in Subjective Physical Exam Physical Exam: General- No acute distress Head- atraumatic Eyes- PERRL, EOMI, ENT- oropharynx clear Neck- supple, no JVD Lungs- clear to auscultation Heart- regular rhythm; no murmur Abdomen- normal bowel sounds, soft, nontender Extremities- no calf tenderness Neuro- alert, oriented x 3; PERRL, EOMI; no facial palsy; no dysarthria Skin- warm & dry Results & Data Results & Data ([facility]) Vital Signs (Past 12 Hours) Vital Signs Temp Pulse Pulse Resp BP Pulse Ox O2 Del Method 03/26/22 16:05 36.9 C 74 18 149/67 H 94 Room Air 03/26/22 15:16 72 03/26/22 08:15 Room Air 03/26/22 12:22 36.5 C 77 19 142/67 H 94 Room Air 03/26/22 08:05 36.3 C L 66 18 144/71 H 95 Room Air 03/26/22 07:20 64 03/26/22 06:40 36.8 C
[2022-03-26] MEDS ORDERED: AMOXICILLIN 250 MG CAP PO ONE (18:43)
[2022-03-26] MEDS ORDERED: diphenhydrAMINE 50 MG/ML VIAL IV PRN (22:20)
[2022-03-26] MEDS ORDERED: EPINEPHrine ADULT AUTO-INJECT 0.3 MG SYR IM PRN (22:20)
[2022-03-27] MEDS ORDERED: VANCOMYCIN HCL 1,250 MG in SODIUM CHLORIDE 0.9% 250 ML IV SCH
[2022-03-27 06:28] LABS: BUN Creatinine Ratio 12.1 (10-20); Calcium 8.5 mg/dl (8.5-10.1); Creatinine Clr Calc Pharmacy 49.6 ml/min; Est GFR (African American) 49.4 ml/min; Est GFR (Non-African American) 42.6 ml/min; Potassium 4.2 mmol/L (3.5-5.1)
[2022-03-27] MEDS: amLODIPine BESYLATE 5 MG TAB PO SCH (08:24)
[2022-03-27] MEDS: ASPIRIN 81 MG ECTAB PO SCH (08:24)
[2022-03-27] MEDS: HEPARIN SOD 5,000 UNIT/0.5 ML VIAL SQ SCH (08:24)
[2022-03-27] MEDS: ATORVASTATIN 10 MG TAB PO SCH (08:24)
[2022-03-27] MEDS: METOPROLOL TARTRATE 50 MG TAB PO SCH (08:25)
[2022-03-27] MEDS ORDERED: AMOXICILLIN/CLAVULANATE 875 MG TAB PO ONE (10:03)
--- NOTE | 2022-03-27 10:45 | Hospitalist Progress Note ---
Date of Service March 27, 2022 Assessment & Plan (1) Left lower lobe pneumonia: (2) Multiple lung nodules: Plan: Presents with persistent fever over past several weeks. Also has symptoms of cough and shortness of breath intermittently. History of 1/2 pack smoking per day for last 20 years. He quitted 6-month ago. CT chest showed innumerable pulmonary nodules concerning for metastatic disease versus less likely septic emboli. CT abdomen showed left basilar opacity. No intra-abdominal abnormality found. Patient's last colonoscopy was in February 2020; found to have tubular adenoma in ascending and sigmoid colon. Recommended to have colonoscopy in 3 years. Pro-Wilbur negative Echocardiogram shows EF of 60 to 65% with mild concentric LVH. No segmental wall motion abnormality seen. Blood culture from 03/23 no growth in 24 hours. Plan; As per pulmonology, more classic appearance for septic emboli rather than true pneumonia. Recommended follow-up CT in 8 to 10 weeks with outpatient pulmonology follow-up. Transthoracic needle aspiration or bronchoscopy at the time being. Recommended ID consultation. Infectious disease evaluated the patient; recommended broad-spectrum antibiotic for now until cultures result are obtained. Also recommended to add azithromycin until Legionella is ruled out. Continue on ceftriaxone, Vanco and azithromycin. Will reach out to ID again if blood culture remains negative for 48 hours to decide on long-term antibiotics. ID also Recommended to sent HIV test, viral hepatitis, repeat blood cultures, follow blood cultures, AFB blood cultures, 1 3 beta D glucan, Anaplasma PCR. Also recommended to send sputum culture for Legionella and AFB. From urine, antigen for Legionella, Blastomyces and histoplasma sent. Blood culture remains negative and sputum culture collected today -Pending Case discussed with ID that recommended to change ceftriaxone to Augmentin if blood culture remain negative Noted patient to have an allergy with penicillin but patient received 7 doses of IV Zosyn during this admission course. Doubt patient has a true allergy with penicillin. ID suggested to give a low dose of amoxicillin and to watch for any allergy reaction. Discussed with patient and he agreed to try the amoxicillin while in the hospital since he got Zosyn with no side effect. He understood the risk such as rash, itchiness, swelling and anaphylaxis reaction. Spoke to nurse to monitor pt closely for any sign of allergic reaction and to notify the PCP YOSELYN if any reaction noted. Will discontinue IV vancomycin IV ceftriaxone discontinue Continue Azithromycin daily Amoxicillin 250mg PO given last night with no sign of allergy reaction Will start on Augmentin 875mg BID this morning then monitor for the afternoon, if no issue, will plan to discharge home later Sputum cx negative (3) Stage 3a chronic kidney disease (CKD): (4) STEFFANIE (acute kidney injury): Plan: Cr. 2.2, baseline of 1.7 to 1.9. Creatinine 1.6 today Improved with IV fluids. encourage oral intake. no iv fluids Lisinopril on hold for now (5) Elevated liver enzymes: Plan: AST/ALT/ALP50, 70, 118 Liver ultrasound showed hepatic steatosis Hepatitis panel pending (6) HTN (hypertension): Plan: Continue metoprolol, will dose now Will resume lisinopril tomorrow (7) HLD (hyperlipidemia): Plan: - Cont atorvastain (8) PVD (peripheral vascular disease): Plan: - Hx of iliac artery stent placement in August 2021, cont pletal, statin. No longer on DAPT since 2 months post surgery - Duplex scan of LE- right iliac artery stent patent. Plan DVT Heparin on Full code Admission and Anticipated Discharge Date Admission Date: March 23, 2022 Subjective Patient seen and examined for follow Lying in bed with no acute distress Pt said that he feels fine He denies any fever last night He tolerated the trial dose of amoxicillin 250mg last night without any sign of allergic reaction Denies any chest pain, palpitation, dizziness, rash and SOB Review of Systems Review of Systems: All systems reviewed & are unremarkable except as noted in Subjective Physical Exam Physical Exam: General- No acute distress Head- atraumatic Eyes- PERRL, EOMI, ENT- oropharynx clear Neck- supple, no JVD Lungs- clear to auscultation Heart- regular rhythm; no murmur Abdomen- normal bowel sounds, soft, nontender Extremities- no calf tenderness Neuro- alert, oriented x 3; PERRL, EOMI; no facial palsy; no dysarthria Skin- warm & dry Results & Data Results & Data ([facility]) Vital Signs (Past 12 Hours) Vital Signs Temp Pulse Resp BP Pulse Ox O2 Del Method 03/27/22 06:54 36.8 C 76 18 120/68 92 Room Air 03/27/22 03:51 36.8 C 75 18 114/65 90 Room Air 03/26/22 23:00 36.8 C 72 18 152/71 H 91 Room Air
[2022-03-27] MEDS ORDERED: AZITHROMYCIN 250 MG TAB PO SCH (16:45)
[2022-03-27] MEDS ORDERED: AMOXICILLIN/CLAVULANATE 875 MG TAB PO SCH ×2 (17:00→21:00)
--- NOTE | 2022-03-27 17:40 | Discharge Summary ---
Date of Service March 27, 2022 Admission HPI Per Admitting Provider This is a 66-year-old male with PMHx of HTN, HLD, statin intolerance, paroxysmal A. fib, CKD stage III, anemia secondary to CKD who has been being treated with Levaquin for an outpatient pneumonia for the past week. Initially 2 weeks ago he had cough, respiratory symptoms and shortness of breath intermittently. He was initially bringing up sputum but isn't anymore. He has had a very poor appetite since being sick but denies any weight loss. Admits to having some night sweats acutely with all of these symptoms but has never noticed this before. He feels current heaviness in the center of his chest, no pain, no palpitations or tightness. He represented to his PCP office this morning due to persistent fevers over the past 8 days reaching upwards of 102 every day. He had CXR and d dimer done last Tuesday and PCP noticed a spot that did not look improved upon review today. Due to an elevated D-dimer he was sent to the ER for possible CTA to rule out pulmonary embolism. After obtaining lab work it was found that he is in STEFFANIE with an elevated creatinine of 2.[address] was not able to be done,. Noncontrast CT was showing possible metastatic nodules versus septic emboli. He also notes that he quit smoking approximately 6 months ago, smoked 1/2 pack/day for 20 years. He has been taking Tylenol which is breaking his fevers, last taken at 5 am today. He did not take any of his other routinely scheduled medications Today's creatinine is found to be 2.22, baseline of 1.7. His white count is 4.5 with lymphopenia of 0.71. Troponin is found to be 56.6. Previously was on blood thinner 2 months after having iliac artery stent in August 2021. Admission Exam Per Admitting Provider General: awake, alert, no apparent distress Head: Normocephalic, atraumatic ENT: PERRL, EOMI, no pharyngeal exudate, mucous membranes moist Chest: Rales at bases bilaterally, diminished at the right base slightly, o2 sats are stable at 96% on RA Cardiac: Regular rate and rhythm, no murmur, no JVD, normal peripheral pulses, good capillary refill Abdominal: NABS x 4 quadrants, soft, nondistended, nontender to palpation, no rebound, + guarding with palpation of the RLQ and mid right lower quadrant Extremities: Normal inspection, no peripheral edema or erythema, calfs nontender to palpation Psych: Normal mood and affect Neuro: AAO x 3, strength intact bilaterally and rated 5/5, no motor deficits, speech is clear, no peripheral sensory deficits Principal Diagnosis (1) Left lower lobe pneumonia: (2) Multiple lung nodules: (3) Stage 3a chronic kidney disease (CKD): (4) STEFFANIE (acute kidney injury): (5) Elevated liver enzymes: (6) HTN (hypertension): (7) HLD (hyperlipidemia): (8) PVD (peripheral vascular disease): Discharge Exam General- No acute distress Head- atraumatic Eyes- PERRL, EOMI, ENT- oropharynx clear Neck- supple, no JVD Lungs- clear to auscultation Heart- regular rhythm; no murmur Abdomen- normal bowel sounds, soft, nontender Extremities- no calf tenderness Neuro- alert, oriented x 3; PERRL, EOMI; no facial palsy; no dysarthria Skin- warm & dry Discharge Data Allergies Allergy/AdvReac Type Severity Reaction Status Date / Time Penicillins Allergy Unknown UNKNOWN Verified 09/12/20 01:33 REACTION Consultations 03/23/22 11:12 ED Decision to Admit Stat 03/23/22 11:51 Consult Nephrology Routine 03/23/22 12:37 Consult Infectious Diseases Routine 03/24/22 07:33 Consult Pulmonology Routine Ordered Studies 03/23/22 08:30 CT chest diagnostic wo con Stat 03/23/22 10:15 US venous doppler LE BI Stat 03/23/22 12:20 CT Abd and Pelvis [CT abd pelvis wo con] Stat 03/24/22 07:49 US liver Routine 03/24/22 13:44 US arterial duplex LE RT Urgent Laboratory Results WBC 4.57 K/ul (4.8-10.8) L 03/26/22 04:48 RBC 4.25 M/uL (4.63-6.08) L 03/26/22 04:48 Hgb 12.6 g/dl (14.0-18.0) L 03/26/22 04:48 Hct 37.4 % (40.1-51.0) L 03/26/22 04:48 MCV 88.0 fL (80.0-100.0) 03/26/22 04:48 MCH 29.6 pg (25.0-34.0) 03/26/22 04:48 MCHC 33.7 g/dL (32.0-36.0) 03/26/22 04:48 RDW Std Deviation 43.7 fL (36.4-46.3) 03/26/22 04:48 RDW Coeff of Papito 13.6 % (11.5-14.5) 03/26/22 04:48 Plt Count 145 K/uL (130-400) 03/26/22 04:48 MPV 9.3 fL (9.4-12.4) L 03/26/22 04:48 Immature Gran % (Auto) 0.4 % 03/26/22 04:48 Neut % (Auto) 64.6 % 03/26/22 04:48 Lymph % (Auto) 17.7 % 03/26/22 04:48 [place] % (Auto) 11.4 % 03/26/22 04:48 Eos % (Auto) 5.7 % 03/26/22 04:48 Baso % (Auto) 0.2 % 03/26/22 04:48 Neut # (Auto) 2.95 K/uL (1.4-6.5) 03/26/22 04:48 Lymph # (Auto) 0.81 K/uL (1.2-3.4) L 03/26/22 04:48 [place] # (Auto) 0.52 K/uL (0.24-0.82) 03/26/22 04:48 Eos # (Auto) 0.26 K/uL (0-0.50) 03/26/22 04:48 Baso # (Auto) 0.01 K/uL (0-0.2) 03/26/22 04:48 Immature Gran # (Auto) 0.02 K/uL (0.00-0.02) 03/26/22 04:48 Platelet Estimate Decreased (Normal) L 03/24/22 05:35 Polychromasia 1+ 03/25/22 05:36 Tear Drop Cells 1+ 03/25/22 05:36 Echinocytes 3+ 03/25/22 05:36 Acanthocytes (Spur) 1+ 03/25/22 05:36 ESR 21 mm/hr (0-20) H 03/24/22 05:35 Sodium 136 mmol/L (136-145) 03/27/22 05:39 Potassium 4.2 mmol/L (3.5-5.1) 03/27/22 05:39 Chloride 106 mmol/L (98-107) 03/27/22 05:39 Carbon Dioxide 23 mmol/L (21-32) 03/27/22 05:39 Anion Gap 7 (3-11) 03/27/22 05:39 BUN 20 mg/dl (6-23) 03/27/22 05:39 Creatinine 1.65 mg/dl (0.6-1.4) H 03/27/22 05:39 Est Cr Clr Drug Dosing 49.6 ml/min 03/27/22 05:39 Est GFR ( Amer) 49.4 ml/min 03/27/22 05:39 Est GFR (Non-Af Amer) 42.6 ml/min 03/27/22 05:39 BUN/Creatinine Ratio 12.1 (10-20) 03/27/22 05:39 Glucose 80 mg/dl (70-99(Fasting)) 03/27/22 05:39 Calcium 8.5 mg/dl (8.5-10.1) 03/27/22 05:39 Magnesium 1.9 mg/dl (1.7-2.4) 03/23/22 08:26 Total Bilirubin 0.7 mg/dl (0.2-1.0) 03/24/22 05:35 Direct Bilirubin 0.1 mg/dl (0-0.2) 03/24/22 05:35 AST 50 U/L (13-39) H 03/24/22 05:35 ALT 70 U/L (7-52) H 03/24/22 05:35 Alkaline Phosphatase 118 U/L (34-104) H 03/24/22 05:35 Troponin I High Sens 69.2 pg/ml (0-20) H* D 03/23/22 20:25 C-Reactive Protein 3.27 mg/dl (0-0.5) H 03/24/22 05:35 Total Protein 6.1 gm/dl (6.0-8.3) 03/24/22 05:35 Albumin 3.4 gm/dl (3.4-5.0) 03/24/22 05:35 Globulin 3.4 gm/dl (2.5-4.0) 03/23/22 08:26 Albumin/Globulin Ratio 1.2 (0.9-2) 03/23/22 08:26 Procalcitonin 0.38 ng/ml (0-0.5) 03/23/22 08:26 Urine Color Yellow 03/23/22 20:13 Urine Appearance Clear (Clear) 03/23/22 20:13 Urine pH 5.5 (4.5-7.5) 03/23/22 20:13 Ur Specific [place] 1.017 (1.000-1.030) 03/23/22 20:13 Urine Protein Trace (Negative) H 03/23/22 20:13 Urine Glucose (UA) Negative (Negative) 03/23/22 20:13 Urine Ketones Negative (Negative) 03/23/22 20:13 Urine Blood Trace (Negative) H 03/23/22 20:13 Urine Nitrite Negative (Negative) 03/23/22 20:13 Urine Bilirubin Negative (Negative) 03/23/22 20:13 Urine Urobilinogen Negative (Negative) 03/23/22 20:13 Ur Leukocyte Esterase Negative (Negative) 03/23/22 20:13 Urine WBC (Auto) 0 /hpf (0-5) 03/23/22 20:13 Urine RBC (Auto) 0-4 /hpf (0-4) 03/23/22 20:13 U Hyaline Cast (Auto) 0 /lpf (0-5) 03/23/22 20:13 U Epithel Cells (Auto) 0-5 /lpf (0-5) 03/23/22 20:13 Urine Bacteria (Auto) Negative (Negative) 03/23/22 20:13 Nasal Screen MRSA (PCR) Negative (Negative) 03/25/22 11:11 Stl C. diff Tox B Gene Negative Cdiff Gene (Neg) 03/25/22 08:13 Random Vancomycin 9.4 mcg/ml (10-20) L 03/26/22 04:48 Anaplasma Smear See Comment 03/25/22 05:36 Babesia Smear See Comment 03/25/22 05:36 Babesia microti DNA PCR Not Detected (Not Detected) 03/25/22 05:36 SARS-CoV-2 (PCR) NEGATIVE (Negative) 03/23/22 08:26 Hepatitis A IgM Ab NON-REACTIVE (NON-REACTIVE) 03/25/22 11:17 Hep Bs Antigen NON-REACTIVE (NON-REACTIVE) 03/25/22 11:17 Hep Bs Ag Confirmation TNP 03/25/22 11:17 Hep B Core IgM Ab NON-REACTIVE (NON-REACTIVE) 03/25/22 11:17 Hepatitis C Ab (EIA) NON-REACTIVE (NON-REACTIVE) 03/25/22 11:17 Hep C Ab Signal/Cutoff 0.02 (<1.00) 03/25/22 11:17 HIV (1&2) Ag & Ab Conf NON-REACTIVE (NON-REACTIVE) 03/25/22 11:17 Influenza Type A (PCR) Negative (Neg) 03/23/22 08:26 Influenza Type B (PCR) Negative (Neg) 03/23/22 08:26 Legionella Source Cancelled 03/25/22 11:17 Legionella Culture Cancelled 03/25/22 11:17 RSV (RT-PCR) Negative (Neg) 03/23/22 08:26 AFB Specimen Processing Comment (.) 03/25/22 11:17 AFB Smear TNP 03/25/22 11:17 Beta-(1,3)-D-Glucan 34 pg/mL 03/25/22 11:17 B-(1,3)-D-Glucan Intrp NEGATIVE 03/25/22 11:[address] 03/23/22 08:30 CT chest diagnostic wo con CLINICAL HISTORY: PE TECHNIQUE: Multidetector row helical CT of the chest was performed. Coronal and sagittal reformations were obtained. Automated dose lowering techniques and/or adjustment according to patient size were utilized for this exam. CT DOSE: 582.43 mGycm Comparison: Comparison is made to chest radiograph 05/04/2006 FINDINGS: Lungs and pleura: Innumerable pulmonary nodules are seen throughout bilateral lungs. Atelectasis is in the right lower lobe. Prominent nodules include the followin mm nodule in the right upper lobe (series 4 image 73) 9 mm nodule in the right lower lobe (image 134) 11 mm nodule in the right middle lobe (image 158) 5 mm nodule in the lingula (image 168) 10 mm nodule in the left lower lobe (image 131) Heart and pericardium: Physiologic pericardial fluid is noted. Vessels: Severe atherosclerotic changes in the aorta and coronary arteries. Evaluation for pulmonary embolus is limited due to noncontrast technique. Mediastinum and samson: Numerous calcified lymph nodes are seen. Chest wall and lower neck: Unremarkable. Abdomen: Unremarkable. Bones: Degenerative changes in the thoracic spine. IMPRESSION: 1. Innumerable pulmonary nodules concerning for metastatic disease versus less likely septic emboli. Correlation with history is recommended. 2. Evaluation for pulmonary embolus is limited by noncontrast technique. 3. Extensive calcified mediastinal lymph nodes may represent prior granulomatous disease versus posttreatment changes of metastatic lymphadenopathy. ACT 112: Negative or not required by law. Electronically signed by: Cristo Kapoor M.D. 03/23/2022 9:56 AM Venous Doppler Study 03/23/22 10:15 BILATERAL LOWER EXTREMITY VENOUS DOPPLER HISTORY: Elevated d-dimer. elevated dimer COMPARISON STUDY: None. FINDINGS: There is normal compressibility, flow, and augmentation within the bilateral lower extremity deep venous systems. IMPRESSION: No DVT within the right or left lower extremity. ACT 112: Negative or not required by law. Electronically signed by: Jaspreet Isaacs M.D. 03/23/2022 3:16 PM Abdomen/Pelvis CT 03/23/22 12:20 CT SCAN OF THE ABDOMEN AND PELVIS WITHOUT IV CONTRAST CLINICAL HISTORY: Right-sided abdominal pain. Abnormal chest CT with possible pulmonary metastatic disease. COMPARISON STUDY: Lumbar spine radiographs dated 09/12/2013. Chest CT dated 03/23/2022. TECHNIQUE: CT scan of the abdomen and pelvis is performed from the lung bases to the proximal femora. Images are reviewed in the axial, sagittal, and coronal planes. IV contrast was not administered for this examination as per the referring clinician. Note that the examination was performed and significantly suboptimal fashion without oral and IV contrast. A dose lowering technique was utilized adhering to the principles of ALARA. CT DOSE: 810.52 mGy.cm FINDINGS: Lung bases: The heart is enlarged noting a small to moderate pericardial effusion. The coronary arteries are densely calcified. Airspace consolidation is seen at the left lung base. There are numerous (greater than 10) irregular lower lobe pulmonary nodules which are highly suspicious for metastatic disease. A business process representative nodule in the left lower lobe on image #6 measures 1.3 cm and a business process representative nodule in the right middle lobe on image #1 measures 1.2 cm. There is a small hiatal hernia. There are calcified mediastinal lymph nodes. Liver: The unenhanced liver is normal in size, contour, and attenuation. There is no intrahepatic biliary ductal dilatation. Gallbladder: Unremarkable. Spleen: Normal in size and attenuation. Pancreas: Unremarkable. Adrenal glands: Unremarkable. Kidneys: The unenhanced kidneys demonstrate cortical atrophy and are without hydronephrosis. There are no renal calculi identified. There is no evidence of contour deforming renal mass lesion. Abdominal vasculature: There is advanced atherosclerotic calcification and ectasia of the abdominal aorta. A stent is noted in the right common iliac artery. There is likely a high-grade stenosis versus occlusion of the left superficial femoral artery seen on image #434. This is not well assessed without IV contrast. Bowel: There is no bowel obstruction. The appendix is well-visualized and normal. Peritoneum: There is no intraperitoneal free air or abdominal ascites. Lymphadenopathy: No pathologically enlarged lymph nodes are identified in the abdomen or pelvis. Calcified nodes are seen in the upper abdomen. Pelvic viscera: The prostate gland is enlarged and heterogeneous. The bladder is distended, the wall appears thickened/trabeculated indicating chronic outlet obstruction. Postsurgical changes noted in the right groin. Skeletal structures: The skeletal structures are osteopenic. There is mild to moderate lumbosacral spondylosis. No lytic or blastic lesions are seen. IMPRESSION: 1. No acute infectious or inflammatory findings are identified in the abdomen or pelvis. 2. There is no evidence of intra-abdominal metastatic disease on this unenhanced examination. 3. Numerous pathologically indeterminate lower lobe pulmonary nodules are similar to today's chest CT. Also these could potentially be infectious/inflammatory, the appearance is more suspicious for multifocal pulmonary metastatic disease. At a minimum, short-term CT follow-up is recommend. 4. There is left basilar consolidation. Correlate clinically for evidence of pneumonia/aspiration pneumonitis. 5. Additional findings as above. ACT 112: Negative or not required by law. Electronically signed by: Aroldo Carrasco M.D. 03/23/2022 12:53 PM Liver Ultrasound 03/24/22 07:49 ABDOMINAL ULTRASOUND, RIGHT UPPER QUADRANT HISTORY: Elevated liver enzymes. COMPARISON: Abdomen and pelvis CT 03/23/2022 FINDINGS: Pancreas: The pancreas demonstrates a normal echotexture. Liver: The liver is echogenic consistent with fatty change. Gallbladder: No gallbladder wall thickening. No gallstones. CBD: 6 mm. Right kidney: No hydronephrosis. IMPRESSION: 1. Hepatic steatosis. 2. Normal gallbladder. No gallstones. ACT 112: Negative or not required by law. Electronically signed by: Rios Maxwell M.D. 03/24/2022 3:25 PM Duplex Scan Lower Extremity Artery 03/24/22 13:44 US arterial duplex LE RT CLINICAL HISTORY: eval RIGHT iliac stent for ??infectious source COMPARISON STUDY: None. FINDINGS: Normal velocities and biphasic waveforms seen within the visualized right iliac arteries, right common femoral artery, and right superficial femoral artery. Specifically, the right iliac artery stent appears patent. No adjacent fluid collections identified. IMPRESSION: The right iliac artery stent appears patent. There are no associated fluid collections. ACT 112: Negative or not required by law. Electronically signed by: Rios Maxwell M.D. 03/24/2022 3:14 PM Hospital Course (1) Left lower lobe pneumonia: (2) Multiple lung nodules: Presents with persistent fever over past several weeks. Also has symptoms of cough and shortness of breath intermittently. History of 1/2 pack smoking per day for last 20 years. He quitted 6-month ago. CT chest showed innumerable pulmonary nodules concerning for metastatic disease versus less likely septic emboli. CT abdomen showed left basilar opacity. No intra-abdominal abnormality found. Patient's last colonoscopy was in February 2020; found to have tubular adenoma in ascending and sigmoid colon. Recommended to have colonoscopy in 3 years. Pro-Wilbur negative Echocardiogram shows EF of 60 to 65% with mild concentric LVH. No segmental wall motion abnormality seen. Blood culture from 03/23 no growth in 24 hours. Plan; As per pulmonology, more classic appearance for septic emboli rather than true pneumonia. Recommended follow-up CT in 8 to 10 weeks with outpatient pulmonology follow-up. Transthoracic needle aspiration or bronchoscopy at the time being. Recommended ID consultation. Infectious disease evaluated the patient; recommended broad-spectrum antibiotic for now until cultures result are obtained. Also recommended to add azithromycin until Legionella is ruled out. Continue on ceftriaxone, Vanco and azithromycin. Will reach out to ID again if blood culture remains negative for 48 hours to decide on long-term antibiotics. ID also Recommended to sent HIV test, viral hepatitis, repeat blood cultures, follow blood cultures, AFB blood cultures, 1 3 beta D glucan, Anaplasma PCR. Also recommended to send sputum culture for Legionella and AFB. From urine, antigen for Legionella, Blastomyces and histoplasma sent. Blood culture remains negative and sputum culture collected today -Pending Case discussed with ID that recommended to change ceftriaxone to Augmentin if blood culture remain negative Noted patient to have an allergy with penicillin but patient received 7 doses of IV Zosyn during this admission course. Doubt patient has a true allergy with penicillin. ID suggested to give a low dose of amoxicillin and to watch for any allergy reaction. Discussed with patient and he agreed to try the amoxicillin while in the hospital since he got Zosyn with no side effect. He understood the risk such as rash, itchiness, swelling and anaphylaxis reaction. Spoke to nurse to monitor pt closely for any sign of allergic reaction and to notify the PCP YOSELYN if any reaction noted. Will discontinue IV vancomycin IV ceftriaxone discontinue Continue Azithromycin daily Amoxicillin 250mg PO given last night with no sign of allergy reaction Will start on Augmentin 875mg BID this morning then monitor for the afternoon, if no issue, will plan to discharge home later Sputum cx negative (3) Stage 3a chronic kidney disease (CKD): (4) STEFFANIE (acute kidney injury): Cr. 2.2, baseline of 1.7 to 1.9. Creatinine 1.6 today Improved with IV fluids. encourage oral intake. no iv fluids Lisinopril was on hold, resume on discharge (5) Elevated liver enzymes: AST/ALT/ALP50, 70, 118 Liver ultrasound showed hepatic steatosis Hepatitis panel negtive (6) HTN (hypertension): Continue metoprolol, will dose now Lisinopril resumed on discharge (7) HLD (hyperlipidemia): - Cont atorvastain (8) PVD (peripheral vascular disease): - Hx of iliac artery stent placement in August 2021, cont pletal, statin. No longer on DAPT since 2 months post surgery - Duplex scan of LE- right iliac artery stent patent. Plan DVT Heparin on Full code Total Time Total Time Spent Total Time Spent (In Minutes): 35 minutes Discharge Plan Discharge Items Patient Disposition: Home - Self-Care Reason For Visit: PNEUMONIA, STEFFANIE Discharge Diagnosis: (1) Left lower lobe pneumonia: (2) Multiple lung nodules: (3) Stage 3a chronic kidney disease (CKD): (4) STEFFANIE (acute kidney injury): (5) Elevated liver enzymes: (6) HTN (hypertension): (7) HLD (hyperlipidemia): (8) PVD (peripheral vascular disease): Activity: Resume your previous activity Non-emergency contact: Primary Care Provider and Driver Guard Call non-emergency contact if: you have any medication questions, your symptoms worsen and your temperature is above 101 Follow-up/Referrals: Edward Self MD [Primary Care Provider] - Diet: Heart Healthy Addtl Attending Provider Instructions: Follow up with your primary care provider Dr. Self Within 1 week Follow up with pulmonology outpatient for the multiple lung nodule Follow up with nephrology to continue monitor renal function You will need a repeat Cat scan without contrast of the lung in 8 weeks to monitor the lung nodule Check BMP weekly for 2 weeks to monitor renal function Your provider will discuss the result of the pending lab for Legionella, Hepatitis panel, beta D glucan and AFB at the next follow up appointment Seek medical attention if your symptoms reoccur Complete the course of the antibiotic with Augmentin and Zithromax Pending Studies at Discharge: Yes (Legionella, Hepatitis panel, beta D glucan and AFB ) Stand-Alone Forms: My [facility] [employer], Smoking Cessation Medications and DC Order Prescriptions: New azithromycin 250 mg Tablet 500 mg PO QAM 4 Days Qty: 8 0RF amoxicillin-pot clavulanate 875-125 mg Tablet 1 tab PO BIDM 4 Days Qty: 8 0RF Continued cilostazol 100 mg tablet 100 mg PO BID atorvastatin 10 mg Tablet 10 mg PO DAILY aspirin 81 mg Tablet,Delayed Release (Dr/Ec) 81 mg PO DAILY amlodipine 10 mg tablet 10 mg PO DAILY metoprolol tartrate 50 mg tablet 50 mg PO BID lisinopril 40 mg tablet 40 mg PO DAILY Discharge Orders: Discharge Order (Routine); Ordered 03/27/22 Ordered By: Harry Kitchen Admission Data Admit Date/Time: 03/23/22 11:28 Attending Provider: Harry Kitchen Admit Provider: Ralf Mckee Primary Care Provider: Edward Self Other Providers: Lloyd Manzo ; Margie Mckeon ; Tommy Gamez I. ; Oracio Griffiths II ; Amber Avelar ; Bayron Gomes ; Derian Thacker ; Scooter Guajardo ; Ralf Mckee ; Vinnie aHll ; Michael Mcdaniel Other Interventions: Discharge Summary Assessment (RN) Last Done: 03/27/22 17:19
[2022-03-28 15:57] LABS: Babesia microti DNA Not Detected (Not Detected)
[2022-03-28 16:51] LABS: Fungitell (1-3)-B-D-Glucan 34 pg/mL; HBSAG NON-REACTIVE (NON-REACTIVE); Hepatitis A Antibody IgM NON-REACTIVE (NON-REACTIVE); Hepatitis B Core Antibody IgM NON-REACTIVE (NON-REACTIVE)
== END 2022-03-27 17:53 | disposition home or self-care (01) | DRG 194 ==
LOC: ED 08:03 → SUATTDRO 11:28 → 4W 11:28
DX: I12.9 Hypertensive chronic kidney disease with stage 1 through stage 4 chronic kidney disease, or unspecified chronic kidney disease; N17.9 Acute kidney failure, unspecified; Z95.828 Presence of other vascular implants and grafts; J18.9 Pneumonia, unspecified organism; N18.31 Chronic kidney disease, stage 3a; Z79.82 Long term (current) use of aspirin; D63.8 Anemia in other chronic diseases classified elsewhere; Z87.891 Personal history of nicotine dependence; R91.8 Other nonspecific abnormal finding of lung field; C79.9 Secondary malignant neoplasm of unspecified site; Z88.0 Allergy status to penicillin; D61.818 Other pancytopenia; I73.9 Peripheral vascular disease, unspecified